=== PATIENT | female | born 1940 | race Caucasian/White ===

== ENCOUNTER 2017-04-11 08:16 | Emergency (ER) | payer MEDICARE, BC ==
--- OUTSIDE RECORDS SUMMARY | 2017-04-11 08:30 | XMS REPORT | Continuity of Care Document ---
:1940 Author Organization [employer] [place] [address] Care Team Providers Name Role Phone Alejandra Harmon Primary Care Provider [phone] Source Comments This disclosure is being made pursuant to the RegBinder program and maynot contain all information available regarding this patient.[employer] Active Allergies and Adverse Reactions Allergen Noted Date Severity Reactions Comments Penicillins 10/15/2014 Low Rash Current Medications Be aware that medications may not be up to date as of this document. Alwaysverify current medications with the patient. Prescription Sig. Disp. Refills Start Date End Date Status budesonide-formoterol Inhale 2 puffs into Active (SYMBICORT) 160-4.5 the lungs 2 (two) MCG/ACT inhaler times daily. fluticasone (FLONASE) 50 2 sprays by Nasal Active MCG/ACT nasal spray route daily. guaiFENesin (MUCINEX) 600 Take 1,200 mg by Active MG 12 hr tablet mouth as needed for Congestion. nicotine (NICODERM CQ) 21 Place 1 patch onto Active MG/24HR patch the skin daily. ALPRAZolam (XANAX) 0.25 Take 0.25 mg by Active MG tablet mouth every 8 (eight) hours as needed for Sleep. calcium carbonate (TUMS) Chew 1 tablet by Active 500 MG chewable tablet mouth as needed for Heartburn. guaifenesin (WAL-TUSSIN) Take 200 mg by Active 100 MG/5ML syrup mouth as needed for Cough. Active Problems Not on file Social History Tobacco Use Types Packs/Day Years Used Date Current Every Day Smoker Smokeless Tobacco: Never Used Alcohol Use Drinks/Week oz/Week Comments Yes 24 Cans of beer 14.4 Last Filed Vital Signs Vital Sign Reading Time Taken Blood Pressure 138/95 10/15/2014 11:19 AM STUDENT OUTREACH COORDINATOR Pulse 65 10/15/2014 11:19 AM STUDENT OUTREACH COORDINATOR Temperature 35.6 C (96 F) 10/15/2014 11:19 AM STUDENT OUTREACH COORDINATOR Respiratory Rate 16 10/15/2014 11:19 AM STUDENT OUTREACH COORDINATOR Height 1.651 m (5' 5") 10/15/2014 9:23 AM STUDENT OUTREACH COORDINATOR Weight 57.607 kg (127 lb) 10/15/2014 9:23 AM STUDENT OUTREACH COORDINATOR Body Mass Index 21.13 10/15/2014 9:23 AM STUDENT OUTREACH COORDINATOR Oxygen Saturation 100% 10/15/2014 11:19 AM STUDENT OUTREACH COORDINATOR Plan of Care Health Maintenance Due Date Last Done Comments Tetanus/Pertussis (1 - Tdap) 1959 Colonoscopy 1990 Well Adult Visit 1990 Zoster Vaccine 60+ 2000 Bone Density 2005 Pneumococcal Low/Medium Risk 65+ (1 of 2 - PCV13) 2005 Retired-INFLUENZA VACCINE 07/18/2016 Results from Last 3 Months Not on file
--- OUTSIDE RECORDS SUMMARY | 2017-04-11 08:30 | XMS REPORT | Continuity of Care Document ---
:1940 Author Organization [facility] ([facility]) Address [place] [address] Phone [phone] Care Team Providers Name Role Phone Provider, No-Primary Care Primary Care Provider Unavailable Source Comments This disclosure is being made pursuant to the Care Everywhere program, applicable federal and state laws, and may not contain all informaitonavailable regarding this patient.[facility] ([facility]) Active Allergies and Adverse Reactions Not on File Current Medications Not on file Active Problems Not on file Social History Tobacco Use Types Packs/Day Years Used Date Never Assessed Plan of Care Health Maintenance Due Date Last Done Comments Hepatitis B Vaccine (1 of 3 - Primary Series) 1940 Tdap Vaccine 1951 Lipid Disorder Screening 1958 Td Vaccine 1958 Mammogram 1980 Colonoscopy 1990 Zoster Vaccine 2000 Osteoporosis Screening (DXA Bone Density) 2005 Pneumococcal Vaccine (1 of 2 - PCV13) 2005 Influenza Vaccine: Seasonal (#1) 06/17/2016 Results from Last 3 Months Not on file
[2017-04-11 08:36] LABS: Hematocrit 34.5 % (37.0-47.0); Hemoglobin 11.7 gm/dL (12.5-16.0); Mean Cell Volume 82.5 fl (78-100); Mean Corpuscular Hgb Conc 33.9 g/dl (32-36); Mean Platelet Volume 8.7 fl (6.0-9.5); Neutrophil # 12.5 K/mm3 (1.3-6.0); Platelet Count 425 K/mm3 (150-450); Red Blood Count 4.18 M/mm3 (4.2-5.4); Red Cell Distribution Width 14.5 % (11.5-14.0); White Blood Count 14.1 K/mm3 (4.0-10.5)
[2017-04-11 08:42] VITALS: BP 174/97
[2017-04-11 08:43] LABS: Prothrombin Time (Patient) 13.4 Seconds (9.4-11.4)
[2017-04-11 08:45] LABS: INR 1.29 INR (0.90-1.10)
[2017-04-11 08:47] LABS: Urine Bilirubin Negative (NEGATIVE); Urine Blood 25 /ul (NEGATIVE); Urine Ketone Negative (NEGATIVE); Urine Nitrite Negative (NEGATIVE); Urine Protein 100 mg/dL (NEGATIVE); Urine Specific Gravity 1.025 SP.GR. (1.005-1.010); Urine Urobilinogen Normal (NORMAL)
[2017-04-11] MEDS ORDERED: PHYTONADIONE (VIT K1) 10 MG/ML AMPUL IV ONE (08:50)
[2017-04-11 08:51] LABS: Troponin I 0.028 ng/ml (0.00-0.10)
[2017-04-11] MEDS ORDERED: PHYTONADIONE (VIT K1) 10 MG/ML AMPUL ONE (08:51)
[2017-04-11 08:53] LABS: Albumin * 3.3 gm/dl (3.4-5.0); Anion Gap 13.4 mmol/L (6.8-13.8); BUN/Creatinine Ratio 24.3 (9.0-21.6); Bilirubin, Total 0.6 mg/dL (0.0-1.1); Ca. Corrected For Albumin 8.7 mg/dL (8.4-10.2); Calcium * 8.5 mg/dL (7.9-10.9); Carbon Dioxide 25.9 mmol/L (24-32.6); Potassium 3.3 mmol/L (3.4-4.6); Total Protein 7.1 gm/dL (6.2-8.2)
[2017-04-11 08:54] LABS: Urine Appearance Clear; Urine Bacteria None Seen; Urine Color Yellow; Urine RBC 0-5 /hpf (0-5); Urine WBC None Seen /hpf (0-5)
--- NOTE | 2017-04-11 09:17 | ERNOTE ---
Neuro HPI ER Record Date of Service: 04/11/17 Presenting Symptoms: weakness, facial droop Time Seen by Provider: 04/11/17 08:24 Source: family, EMR, EMS Exam Limitations: clinical condition Immunizations: IMMUNIZATION HX Immunizations Up to Date No History of Influenza Vaccine Yes Hx Pneumococcal Vaccination Yes Allergies/Adverse Reactions: Allergies Allergy/AdvReac Type Severity Reaction Status Date / Time amoxicillin [Amoxicillin] Allergy Intermediate Hives Verified 04/11/17 08:32 varenicline tartrate Allergy Verified 04/11/17 08:32 [From Chantix] Home Medications: HOME MEDICATIONS Alprazolam [Xanax Xr] 1 mg PO DAILY 03/30/14 [Last Taken Unknown] Levothyroxine Sodium [Synthroid] 100 mcg PO DAILY 03/30/14 [Last Taken Unknown] Omeprazole [Prilosec] 20 mg PO DAILY 03/30/14 [Last Taken Unknown] Aclidinium [place] [Tudorza Pressair] 400 mcg IH BID 07/14/16 [Last Taken Unknown] Albuterol Sulfate [Proair Hfa] 1 - 2 puff IH Q4H PRN 07/14/16 [Last Taken Unknown] Budesonide/Formoterol Fumarate [Symbicort 160-4.5 Mcg Inhaler] 2 puff IH BID [Last Taken Unknown] Triamterene/Hydrochlorothiazid [Maxzide 75 MG/50 MG] 1 tab PO DAILY 07/14/16 [ Last Taken Unknown] FLUoxetine HCL [Prozac] 20 mg PO DAILY 02/09/17 [Last Taken Unknown] Propafenone HCl [Propafenone HCl ER] 225 mg PO Q12H 02/09/17 [Last Taken Unknown ] Warfarin Sodium [Jantoven] 5 mg PO DAILY 02/09/17 [Last Taken Unknown] - History of Present Illness Narrative: Found this am with left facial weakness and left sided weakness. Last seen last night about 10 pm by family. BIB EMS. Moving right side, talking. She is on Warfarin. No history of stoke or trauma. Review of Systems - Narrative Narrative: Unable to complete. Denies any pain. - Patient's Past Medical History Patient History - Medical: Anxiety, Arthritis, GERD, Osteoarthritis, Osteoporosis, Other Patient History - Cardiac/Respiratory: Atrial Fibrillation, COPD Patient History - Cancer: Lung Patient History - Surgical Procedures: , EGD, Total Knee Replacement, T & A, Other Patient History - Other: None - Social History Living Situations: home Abuse History: No History of abuse Psych History: No pertinent hx Alcohol Use: none Drug Use: none - Immunizations Immunizations Up to Date: No Hx Pneumococcal Vaccination: Yes History of Influenza Vaccine: Yes Physical Exam - Physical Exam General Appearance: Present: alert Eye Exam: Normal inspection: bilateral, PERRL: bilateral, EOMI: bilateral Ears, Nose, Throat: Present: normal ENT inspection Neck: Present: normal inspection Respiratory: Present: no respiratory distress, no accessory muscle use, lungs clear Cardiovascular/Chest: Present: regular rate, rhythm, no murmur Gastrointestinal/Abdominal: Present: normal bowel sounds, soft Extremity Exam: Present: normal inspection Neurological Exam: Present: alert, facial droop - left side complete, motor weakness - flaccid left arm/leg. Absent: oriented - oriented to name but does not answer date place Skin Exam: Present: normal color, warm/dry Sullivan Coma Scale - Assess Eye Opening: To Voice Motor: Obeys Commands Verbal: Confused - Total Coma Scale Total: 13 Initial Stroke Assessment - Date/Time of assessment Stroke Scale Date: 04/11/17 Stroke Scale Time: 08:20 - NIH Stroke Scale Level of Consciousness: Alert - Score 15 LOC Questions (Year and Age): Answers neither correctly LOC Commands (open/close eyes/fist): Performs both correctly Lateral Gaze Paresis: None Facial Palsy: Complete facial paralysis Right Arm Motor (10 sec hold): No drift Left Arm Motor (10 sec hold): No movement Right Leg Motor (5 sec hold): No drift Left Leg Motor (5 sec hold): No movement Limb Ataxia (finger/nose heel/feliz): Absent Sensory Loss (pinprick arms/legs/face): Severe to total loss Language Aphasia (description/naming/reading): No aphasia; normal Dysarthria (speech clarity): Normal articulation Neglect Inattention (visual/tactile/auditory/spatial/person): Complete neglect Secondary Stroke Assessment - TPA Decision Is TPA administration indicated?: No - bleed ED Progress - Results and Orders Patient's Lab Results:: I have reviewed the patient's lab results. - that are available - Vital Signs Patient's Vital Signs:: I have reviewed the patient's vital signs. Vital Signs: Vital Signs 04/11/17 04/11/17 08:17 08:28 Temperature 36.7 C Pulse Rate 71 72 Respiratory 12 12 Rate Blood Pressure 179/67 172/79 O2 Sat by Pulse 98 97 Oximetry - EKG EKG: NSR, nonspecific ST T wave changes, other - LAFB - CT/Ultrasound CT/Ultrasound Narrative: CT head shows R intraparenchymal bleed. 3 mm midline shift. - Progress/Reassessment Chief Complaint: CerebroVascular Accident Progress:: Unchanged Plan - Plan Plan: Transfer to [facility]. Talked to Dr. Neftali Castillo. Vitamin K 10 mg IV. Accepts for transfer. Air Evac in ER to take. Departure Clinical Impression: Intracerebral hemorrhage, Hemiparesis - Departure Disposition: [facility] Condition: Critical Referrals: Alejandra Harmon MD [Primary Care Provider] -
== END 2017-04-11 08:55 | disposition short-term general hospital (02) ==
LOC: ER 08:16
DX: I61.9 Nontraumatic intracerebral hemorrhage, unspecified (principal); G81.94 Hemiplegia, unspecified affecting left nondominant side; Z85.118 Personal history of other malignant neoplasm of bronchus and lung

== ENCOUNTER 2017-06-16 19:46 | Emergency (ER) | payer MEDICARE, BC ==
--- OUTSIDE RECORDS SUMMARY | 2017-06-16 19:56 | XMS REPORT | Clinical Summary ---
:1940 Author Organization [employer] [place] [address] Care Team Providers Name Role Phone Unavailable Primary Care Provider Unavailable Source Comments This disclosure is being made pursuant to the Aggregate Knowledge program and maynot contain all information available regarding this patient.[employer] Allergies Active Allergy Reactions Severity Noted Date Comments Penicillins Rash Low 10/15/2014 Current Medications Be aware that medications may [...] Comments Yes 24 Cans of beer 14.4 Sex Assigned at Date Recorded Not on file Last Filed Vital Signs Vital Sign Reading Time Taken Blood Pressure 138/95 10/15/2014 11:19 AM CHIEF LIBRARIAN CIRCULATION DEPARTMENT Pulse 65 10/15/2014 11:19 AM CHIEF LIBRARIAN CIRCULATION DEPARTMENT Temperature 35.6 C (96 F) 10/15/2014 11:19 AM CHIEF LIBRARIAN CIRCULATION DEPARTMENT Respiratory Rate 16 10/15/2014 11:19 AM CHIEF LIBRARIAN CIRCULATION DEPARTMENT Oxygen Saturation 100% 10/15/2014 11:19 AM CHIEF LIBRARIAN CIRCULATION DEPARTMENT Inhaled Oxygen Concentration - - Weight 57.6 kg (127 lb) 10/15/2014 9:23 AM CHIEF LIBRARIAN CIRCULATION DEPARTMENT Height 165.1 cm (5' 5") 10/15/2014 9:23 AM CHIEF LIBRARIAN CIRCULATION DEPARTMENT Body Mass Index 21.13 10/15/2014 9:23 AM CHIEF LIBRARIAN CIRCULATION DEPARTMENT Plan of Treatment Health Maintenance Due Date Last Done Comments Tetanus/Pertussis (1 - Tdap) 1959 Colonoscopy 1990 Well Adult Visit 1990 Zoster Vaccine 60+ 2000 Bone Density 2005 Pneumococcal Low/Medium Risk 65+ (1 of 2 - PCV13) 2005 Retired-INFLUENZA VACCINE 07/18/2016 Results Not on filefrom Last 3 Months Insurance Payer Benefit Plan / Group Subscriber ID Type Phone Address [employer] [facility] [id number] [facility] [id number] MEDICARE SUPPLEMENT [address] [place] [address] MEDICARE MEDICARE A AND B [id number] [address] [place] [address] [phone] [address]
--- NOTE | 2017-06-16 20:32 | ERNOTE ---
Neuro HPI ER Record Date of Service: 06/16/17 Time Seen by Provider: 06/16/17 19:50 Source: patient Exam Limitations: no limitations Immunizations: IMMUNIZATION HX Immunizations Up to Date Yes History of Influenza Vaccine Yes Hx Pneumococcal Vaccination Yes Allergies/Adverse Reactions: Allergies Allergy/AdvReac Type Severity Reaction Status Date / Time amoxicillin [Amoxicillin] Allergy Intermediate Hives Verified 06/16/17 19:55 varenicline tartrate Allergy Verified 06/16/17 19:55 [From Chantix] Home Medications: HOME MEDICATIONS Alprazolam [Xanax Xr] 1 mg PO DAILY 03/30/14 [Last Taken Unknown] Levothyroxine Sodium [Synthroid] 137 mcg PO DAILY 03/30/14 [Last Taken Unknown] Omeprazole [Prilosec] 20 mg PO DAILY 03/30/14 [Last Taken Unknown] Aclidinium [place] [Tudorza Pressair] 400 mcg IH BID 07/14/16 [Last Taken Unknown] Albuterol Sulfate [Proair Hfa] 1 - 2 puff IH Q4H PRN 07/14/16 [Last Taken Unknown] Budesonide/Formoterol Fumarate [Symbicort 160-4.5 Mcg Inhaler] 2 puff IH BID [Last Taken Unknown] FLUoxetine HCL [Prozac] 20 mg PO DAILY 02/09/17 [Last Taken Unknown] Propafenone HCl [Propafenone HCl ER] 225 mg PO BID 02/09/17 [Last Taken Unknown] Fluticasone Propionate [Flovent Diskus] 50 mcg IH DAILY 06/16/17 [Last Taken Unknown] Sulfamethoxazole/Trimethoprim [Bactrim Ds] 1 tab PO BID #28 tab 06/16/17 [Last Taken Unknown] Triamterene/Hydrochlorothiazid [Dyazide 37.5/25] 1 cap PO DAILY 06/16/17 [Last Taken Unknown] - History of Present Illness Narrative: Pt. comes in with c/o not remembering her daughter today. Pt. states that she is here with her sister who i actually her daughter and argues with her when her daughter corrects her. Pt. 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 Pt. also has a hx of COPD but denies any increase in symptoms from this. Daughter contacted pt. neurosurgeon and was recommended to bring pt to ER. Review of Systems - Review of Systems Constitutional: Present: no symptoms reported. Absent: fever, chills, weakness , fatigue, malaise EYE: Present: no symptoms reported ENT: Present: no symptoms reported Respiratory: Present: no symptoms reported. Absent: shortness of breath, cough , wheezing Cardiology: Present: no symptoms reported. Absent: chest pain, palpitations, edema Gastrointestinal/Abdominal: Present: no symptoms reported. Absent: nausea, vomiting, diarrhea Genitourinary: Present: no symptoms reported Musculoskeletal: Present: no symptoms reported Skin: Present: no symptoms reported Neurological: Present: other - misnomia. Absent: headache, dizziness/light- headedness, weakness, numbness All Other Systems: All systems neg except as marked - Patient's Past Medical History Patient History - Medical: Anxiety, Arthritis, GERD, Osteoarthritis, Osteoporosis Patient History - Cardiac/Respiratory: Atrial Fibrillation, COPD, CVA/Stroke Patient History - Cancer: Lung Patient History - Surgical Procedures: , EGD, Total Knee Replacement, T & A, Other Patient History - Other: None - Social History Living Situations: retirement Abuse History: No History of abuse Psych History: No pertinent hx Smoking Status: Former smoker Have you smoked in the past 12 months: No Do you dip or chew tobacco: No Alcohol Use: none Drug Use: none - Immunizations Immunizations Up to Date: Yes Hx Pneumococcal Vaccination: Yes History of Influenza Vaccine: Yes Physical Exam - Physical Exam General Appearance: Present: wd/wn, alert, no apparent distress Head Exam: Present: normal inspection, no evidence of injury, other - scarring from procedure Eye Exam: Normal inspection: bilateral, PERRL: bilateral, EOMI: bilateral Ears, Nose, Throat: Present: normal ENT inspection, normal pharynx Neck: Present: normal inspection, nontender. Absent: lymphadenopathy (R), lymphadenopathy (L) Respiratory: Present: no respiratory distress, normal breath sounds, no accessory muscle use, chest nontender, lungs clear Cardiovascular/Chest: Present: regular rate, rhythm, no murmur, normal peripheral pulses Gastrointestinal/Abdominal: Present: normal bowel sounds, nontender, nondistended, soft, no organomegaly Back Exam: Present: normal inspection Extremity Exam: Present: normal inspection, non-tender, normal range of motion, no edema Neurological Exam: Present: alert, oriented, normal mood/affect, no motor/ sensory deficits, ell tutor II-XII nml as tested, other - Ptient is calling her jauner by her sisters name and states that it is her sister Skin Exam: Present: normal color, warm/dry Zwingle Coma Scale - Assess Eye Opening: Spontaneous Motor: Obeys Commands Verbal: Oriented - Total Coma Scale Total: 15 Initial Stroke Assessment - Date/Time of assessment Stroke Scale Date: 06/16/17 Stroke Scale Time: 20:30 - NIH Stroke Scale Level of Consciousness: Alert LOC Questions (Year and Age): Answers both correctly LOC Commands (open/close eyes/fist): Performs both correctly Lateral Gaze Paresis: None Visual Field Loss: No visual loss Facial Palsy: Normal movement Right Arm Motor (10 sec hold): No drift Left Arm Motor (10 sec hold): No drift Right Leg Motor (5 sec hold): No drift Left Leg Motor (5 sec hold): No drift Limb Ataxia (finger/nose heel/feliz): Absent Sensory Loss (pinprick arms/legs/face): No sensory loss Language Aphasia (description/naming/reading): No aphasia; normal Dysarthria (speech clarity): Normal articulation Neglect Inattention (visual/tactile/auditory/spatial/person): No neglect Initial Stroke Scale Score:: 0 Stroke Inclusion/Exclusion Cri - Exclusion Questions: Major symptoms rapidly improving: No Seizure at onset of stroke: No SBP>185; DBP>110 at time treatment is to begin: No Patient received Heparin or Coumadin within 48 hours: No Patient has elevated PTT or Protime/INR: No Stroke, head injury, major surgery, serious trauma in 3 mon.: Yes Previous intracranial hemmorhage: Yes Recent NM: No Known AV malformation or aneurysm: No Blood glucose <50mg/dl or >400mg/dl: No NIHSS Score <4 or >22 performed by physician: No ED Progress - Date and Time Seen: Date and Time: 06/16/17 20:[address] Cain and as the pt. does not have any overt signs of rebleeding and she does have an overt UTI feel that this is the reason for her AMS. - Results and Orders Patient's Lab Results:: I have reviewed the patient's lab results. - Vital Signs Patient's Vital Signs:: I have reviewed the patient's vital signs. Vital Signs: Vital Signs 06/16/17 19:50 Temperature 36.4 C L Pulse Rate 104 H Respiratory 20 Rate Blood Pressure 154/117 - EKG EKG: atrial fibrillation, other - no acute st changes EKG read: Reviewed by me EKG Comments: interp by Dr Cain - CT/Ultrasound CT/Ultrasound Narrative: CT head results discussed with Dr Albarado, no acute changes, residual blood and developing frontal infarct secondary to recent acute injury. 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 Discuss Thyroid level on follow up and increase fluid intake. Referrals: Alejandra Harmon MD [Primary Care Provider] - Prescriptions: Sulfamethoxazole/Trimethoprim [Bactrim Ds] 1 tab PO BID #28 tab
[2017-06-16 20:39] LABS: Hematocrit 33.4 % (37.0-47.0); Hemoglobin 11.1 gm/dL (12.5-16.0); Mean Cell Volume 88.6 fl (78-100); Mean Corpuscular Hemoglobin 29.4 pg (27-31); Mean Corpuscular Hgb Conc 33.2 g/dl (32-36); Mean Platelet Volume 8.7 fl (6.0-9.5); Neutrophil # 5.3 K/mm3 (1.3-6.0); Neutrophil % 56.1 % (42-75.0); Platelet Count 507 K/mm3 (150-450); Red Blood Count 3.77 M/mm3 (4.2-5.4); Red Cell Distribution Width 16.2 % (11.5-14.0); White Blood Count 9.4 K/mm3 (4.0-10.5)
[2017-06-16 20:41] LABS: Urine Bilirubin Negative (NEGATIVE); Urine Blood Negative /ul (NEGATIVE); Urine Ketone Negative (NEGATIVE); Urine Protein 100 mg/dL (NEGATIVE); Urine Specific Gravity 1.015 SP.GR. (1.005-1.010); Urine Urobilinogen Normal (NORMAL)
[2017-06-16 20:48] LABS: Urine Appearance Slightly Cloudy; Urine Bacteria 4+; Urine Color Yellow; Urine Nitrite Positive (NEGATIVE); Urine RBC None Seen /hpf (0-5); Urine WBC 0-5 /hpf (0-5)
[2017-06-16] MEDS ORDERED: SULFAMETHOXAZOLE/TRIMETHOPRIM 1 TAB TABLET PO ONE (20:52)
[2017-06-16 20:53] LABS: Cocaine Ur Negative (NEGATIVE); Urine Barbiturate Negative (NEGATIVE); Urine Opiates Negative (NEGATIVE); Urine PCP Negative (NEGATIVE); Urine THC Negative (NEGATIVE)
[2017-06-16 20:55] LABS: Urine Benzodiazepines Positive (NEGATIVE)
[2017-06-16 20:59] LABS: Albumin * 3.5 gm/dl (3.4-5.0); Anion Gap 13.9 mmol/L (6.8-13.8); BUN/Creatinine Ratio 22.1 (9.0-21.6); Bilirubin, Total 0.4 mg/dL (0.0-1.1); Ca. Corrected For Albumin 8.7 mg/dL (8.4-10.2); Calcium * 8.6 mg/dL (7.9-10.9); Carbon Dioxide 25.9 mmol/L (24-32.6); Potassium 4.8 mmol/L (3.4-4.6); TSH * 20.68 uIU/mL (0.358-3.74); Total Protein 7.2 gm/dL (6.2-8.2)
[2017-06-16] MEDS ORDERED: SULFAMETHOXAZOLE/TRIMETHOPRIM 1 TAB TABLET ONE (20:59)
[2017-06-16] MEDS ORDERED: NORMAL SALINE 1,000 ML IV ONE (21:22)
[2017-06-16 22:41] VITALS: BP 129/67
== END 2017-06-16 22:38 | disposition home or self-care (01) ==
LOC: ER 19:46
DX: N30.00 Acute cystitis without hematuria (principal); Z86.73 Personal history of transient ischemic attack (TIA), and cerebral infarction without residual deficits; F41.9 Anxiety disorder, unspecified; M19.90 Unspecified osteoarthritis, unspecified site; K21.9 Gastro-esophageal reflux disease without esophagitis; I48.91 Unspecified atrial fibrillation; Z79.01 Long term (current) use of anticoagulants; J44.9 Chronic obstructive pulmonary disease, unspecified; Z85.118 Personal history of other malignant neoplasm of bronchus and lung

== ENCOUNTER 2017-06-17 07:14 | Emergency (ER) | payer MEDICARE, BC ==
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
--- OUTSIDE RECORDS SUMMARY | 2017-06-17 07:36 | XMS REPORT | Clinical Summary ---
:1940 Author Organization [employer] [place] [address] Care Team Providers Name Role Phone Unavailable Primary Care Provider Unavailable Source Comments This disclosure is being made pursuant to the [employer] program and maynot contain all information available regarding this patient.[employer] Allergies Active Allergy Reactions Severity Noted Date [...] Taken Blood Pressure 138/95 10/15/2014 11:19 AM [employer] Pulse 65 10/15/2014 11:19 AM [employer] Temperature 35.6 C (96 F) 10/15/2014 11:19 AM [employer] Respiratory Rate 16 10/15/2014 11:19 AM [employer] Oxygen Saturation 100% 10/15/2014 11:19 AM [employer] Inhaled Oxygen Concentration - - Weight 57.6 kg (127 lb) 10/15/2014 9:23 AM [employer] Height 165.1 cm (5' 5") 10/15/2014 9:23 AM [employer] Body Mass Index 21.13 10/15/2014 9:23 AM [employer] Plan of Treatment Health Maintenance Due Date Last Done Comments Tetanus/Pertussis (1 - Tdap) 1959 Colonoscopy 1990 Well Adult Visit 1990 Zoster Vaccine 60+ 2000 Bone Density 2005 Pneumococcal Low/Medium Risk 65+ (1 of 2 - PCV13) 2005 Retired-INFLUENZA VACCINE 07/18/2016 Results Not on filefrom Last 3 Months Insurance Payer Benefit Plan / Group Subscriber ID Type Phone Address [facility]UE [employer]OSS BLUE [facility] [id number] [facility] [id number] MEDICARE SUPPLEMENT [address] [place] [address] MEDICARE MEDICARE A AND B [id number] [address] [place] [address] [phone] [address]
[2017-06-17 10:31] VITALS: BP 109/55
== END 2017-06-17 10:10 | disposition home or self-care (01) ==
LOC: ER 07:14
DX: S00.93XA Contusion of unspecified part of head, initial encounter (principal); S06.0X0A Concussion without loss of consciousness, initial encounter; N30.00 Acute cystitis without hematuria; Z87.891 Personal history of nicotine dependence; W18.30XA Fall on same level, unspecified, initial encounter; W22.8XXA Striking against or struck by other objects, initial encounter; Y93.01 Activity, walking, marching and hiking; Y92.008 Other place in unspecified non-institutional (private) residence as the place of occurrence of the external cause

== ENCOUNTER 2017-06-18 11:00 | Emergency (ER) | payer MEDICARE, BC ==
[2017-06-18 11:17] VITALS: BP 110/68
--- OUTSIDE RECORDS SUMMARY | 2017-06-18 11:33 | XMS REPORT | Clinical Summary ---
:1940 Author Organization [employer] [place] [address] Care Team Providers Name Role Phone Unavailable Primary Care Provider Unavailable Source Comments This disclosure is being made pursuant to the [employer] program and maynot contain all information available regarding this patient.[employer] Allergies Active Allergy Reactions Severity Noted Date [...] Taken Blood Pressure 138/95 10/15/2014 11:19 AM TRAFFIC AGENT Pulse 65 10/15/2014 11:19 AM TRAFFIC AGENT Temperature 35.6 C (96 F) 10/15/2014 11:19 AM TRAFFIC AGENT Respiratory Rate 16 10/15/2014 11:19 AM TRAFFIC AGENT Oxygen Saturation 100% 10/15/2014 11:19 AM TRAFFIC AGENT Inhaled Oxygen Concentration - - Weight 57.6 kg (127 lb) 10/15/2014 9:23 AM TRAFFIC AGENT Height 165.1 cm (5' 5") 10/15/2014 9:23 AM TRAFFIC AGENT Body Mass Index 21.13 10/15/2014 9:23 AM TRAFFIC AGENT Plan of Treatment Health Maintenance Due Date Last Done Comments Tetanus/Pertussis (1 - Tdap) 1959 Colonoscopy 1990 Well Adult Visit 1990 Zoster Vaccine 60+ 2000 Bone Density 2005 Pneumococcal Low/Medium Risk 65+ (1 of 2 - PCV13) 2005 Retired-INFLUENZA VACCINE 07/18/2016 Results Not on filefrom Last 3 Months Insurance Payer Benefit Plan / Group Subscriber ID Type Phone Address [facility]UE [facility]OSS [facility]UE [facility] [id number] [facility] [id number] MEDICARE SUPPLEMENT [address] [place] [address] MEDICARE MEDICARE A AND B [id number] [address] [place] [address] [phone] [address]
== END 2017-06-18 11:24 | disposition home or self-care (01) ==
LOC: ER 11:00
DX: Z48.00 Encounter for change or removal of nonsurgical wound dressing (principal)

== ENCOUNTER 2017-06-21 17:44 | Inpatient (IN) | payer MEDICARE, BC ==
--- OUTSIDE RECORDS SUMMARY | 2017-06-21 17:54 | XMS REPORT | Clinical Summary ---
:1940 Author Organization [employer] [place] [address] Care Team Providers Name Role Phone Unavailable Primary Care Provider Unavailable Source Comments This disclosure is being made pursuant to the [employer] program and maynot contain all information available regarding this patient.[employer] Allergies Active Allergy Reactions Severity Noted Date [...] Taken Blood Pressure 138/95 10/15/2014 11:19 AM [employer] Pulse 65 10/15/2014 11:19 AM [employer] Temperature 35.6 C (96 F) 10/15/2014 11:19 AM [employer] Respiratory Rate 16 10/15/2014 11:19 AM [employer] P[employer] Oxygen Saturation 100% 10/15/2014 11:19 AM [employer] Inhaled Oxygen Concentration - - Weight 57.6 kg (127 lb) 10/15/2014 9:23 AM SE[employer]ER P[employer] CLE[employer] Height 165.1 cm (5' 5") 10/15/2014 9:23 AM [employer] Body Mass Index 21.13 10/15/2014 9:23 AM [employer] Plan of Treatment Health Maintenance Due Date Last Done Comments Tetanus/Pertussis (1 - Tdap) 1959 Colonoscopy 1990 Well Adult Visit 1990 Zoster Vaccine 60+ 2000 Bone Density 2005 Pneumococcal Low/Medium Risk 65+ (1 of 2 - PCV13) 2005 Retired-INFLUENZA VACCINE 07/18/2016 Results Not on filefrom Last 3 Months Insurance Payer Benefit Plan / Group Subscriber ID Type Phone Address [facility] [employer]OSS BLUE [facility] [id number] [facility] [id number] MEDICARE SUPPLEMENT [address] [place] [address] MEDICARE MEDICARE A AND B [id number] [address] [place] [address] [phone] [address]
[2017-06-21] MEDS ORDERED: NORMAL SALINE 1,000 ML IV ONE ×2 (18:11→19:45)
--- NOTE | 2017-06-21 18:15 | ERNOTE ---
Abdominal HPI - General Chief Complaint: Abdominal Pain Time Seen by Provider: 06/21/17 17:48 Source: patient Exam Limitations: no limitations - Immun/Allergies/Home Medications Immunizatons: IMMUNIZATION HX Immunizations Up to Date Yes History of Influenza Vaccine Yes Hx Pneumococcal Vaccination Yes Allergies/Adverse Reactions: Allergies amoxicillin [Amoxicillin] Allergy (Intermediate, Verified 06/21/17 18:02) Hives varenicline tartrate [From Chantix] Allergy (Verified 06/21/17 18:02) Home Medications: HOME MEDICATIONS Alprazolam [Xanax Xr] 1 mg PO DAILY 03/30/14 [Last Taken 06/21/17 07:30] Omeprazole [Prilosec] 20 mg PO DAILY 03/30/14 [Last Taken 06/21/17 07:30] Aclidinium [place] [Tudorza Pressair] 400 mcg IH BID 07/14/16 [Last Taken Unknown] Albuterol Sulfate [Proair Hfa] 1 - 2 puff IH Q4H PRN 07/14/16 [Last Taken 07:30] Budesonide/Formoterol Fumarate [Symbicort 160-4.5 Mcg Inhaler] 2 puff IH BID [Last Taken 06/21/17 07:30] FLUoxetine HCL [Prozac] 20 mg PO DAILY 02/09/17 [Last Taken 06/21/17 07:30] Propafenone HCl [Propafenone HCl ER] 225 mg PO BID 02/09/17 [Last Taken 07:30] Fluticasone Propionate [Flovent Diskus] 50 mcg IH DAILY 06/16/17 [Last Taken 03/03 21:00] Triamterene/Hydrochlorothiazid [Dyazide 37.5/25] 1 cap PO DAILY 06/16/17 [Last Taken 06/21/17 07:30] Levothyroxine Sodium [Synthroid] 150 mcg PO DAILY #30 tab 06/17/17 [Last Taken 06/21/17 07:30] Ciprofloxacin HCl [Cipro] 250 mg PO BID 06/21/17 [Last Taken 06/21/17 07:30] - History of Present Illness Narrative: Here for feeling fatigued and tired and has diarrhea since four days ago. five days ago was diagnosed with UTI and given Bactrim then switched to Cipro. Feels diffuse abdominal pain - Patient's Past Medical History Patient History - Medical: Anxiety, Arthritis, GERD, Osteoarthritis, Osteoporosis Patient History - Cardiac/Respiratory: Atrial Fibrillation, COPD, CVA/Stroke Patient History - Cancer: Lung Patient History - Surgical Procedures: , EGD, Total Knee Replacement, T & A, Other Patient History - Other: None - Family History Mother Family History - Medical: Father Family History - Medical: Family History - Cardiac/Respiratory: Myocardial Infarction - Social History Living Situations: alone Abuse History: No History of abuse Psych History: No pertinent hx Smoking Status: Former smoker Have you smoked in the past 12 months: No Do you dip or chew tobacco: Yes Alcohol Use: none Drug Use: none - Immunizations Immunizations Up to Date: Yes Hx Pneumococcal Vaccination: Yes History of Influenza Vaccine: Yes Physical Exam - Physical Exam General Appearance: Present: other Head Exam: Present: normal inspection, no evidence of injury Ears, Nose, Throat: Present: normal ENT inspection, normal pharynx - dry mucous membranes are noted Neck: Present: normal inspection, nontender Respiratory: Present: no respiratory distress, normal breath sounds, no accessory muscle use, lungs clear Cardiovascular/Chest: Present: no murmur, irregularly irregular Gastrointestinal/Abdominal: Present: normal bowel sounds, soft Back Exam: Present: normal inspection Extremity Exam: Present: normal inspection, normal range of motion - skin tear noted on the left elbow this is an old injury op site is noted in place Neurological Exam: Present: alert, oriented, normal mood/affect - patient appears tired ED Progress - Results and Orders Patient's Lab Results:: I have reviewed the patient's lab results. - Vital Signs Patient's Vital Signs:: I have reviewed the patient's vital signs. Vital Signs: Vital Signs 06/21/17 17:56 Temperature 36.3 C L Pulse Rate 138 H Respiratory 16 Rate Blood Pressure 129/56 O2 Sat by Pulse 97 Oximetry - Progress/Reassessment Chief Complaint: Abdominal Pain Departure - Departure Clinical Impression: Atrial fibrillation with RVR Abdominal pain Qualifiers: Abdominal location: right upper quadrant Qualified Code(s): R10.11 - Right upper quadrant pain Disposition: [facility] Condition: Fair - Critical Care Critical Care: ONE HOUR CRITICAL CARE TIME
[2017-06-21 18:47] LABS: Hematocrit 34.6 % (37.0-47.0); Hemoglobin 11.6 gm/dL (12.5-16.0); Mean Cell Volume 86.1 fl (78-100); Mean Corpuscular Hemoglobin 28.9 pg (27-31); Mean Corpuscular Hgb Conc 33.5 g/dl (32-36); Mean Platelet Volume 8.7 fl (6.0-9.5); Neutrophil # 5.6 K/mm3 (1.3-6.0); Neutrophil % 61.7 % (42-75.0); Platelet Count 538 K/mm3 (150-450); Red Blood Count 4.02 M/mm3 (4.2-5.4); Red Cell Distribution Width 15.8 % (11.5-14.0)
[2017-06-21 18:54] LABS: Total Cells Counted 100
[2017-06-21 18:58] LABS: Urine Appearance Clear; Urine Bilirubin Negative (NEGATIVE); Urine Blood Negative /ul (NEGATIVE); Urine Color Yellow; Urine Ketone Negative (NEGATIVE); Urine Nitrite Negative (NEGATIVE); Urine Protein 100 mg/dL (NEGATIVE); Urine Specific Gravity 1.025 SP.GR. (1.005-1.010); Urine Urobilinogen Normal (NORMAL); Urine WBC 0-5 /hpf (0-5)
[2017-06-21 18:59] LABS: Urine Bacteria None Seen; Urine RBC None Seen /hpf (0-5)
[2017-06-21 19:02] LABS: Albumin * 2.6 gm/dl (3.4-5.0); Anion Gap 17.9 mmol/L (6.8-13.8); BUN/Creatinine Ratio 14.9 (9.0-21.6); Bilirubin, Total 0.3 mg/dL (0.0-1.1); Ca. Corrected For Albumin 8.7 mg/dL (8.4-10.2); Calcium * 7.9 mg/dL (7.9-10.9); Carbon Dioxide 17.5 mmol/L (24-32.6); Potassium 3.4 mmol/L (3.4-4.6); Total Protein 5.9 gm/dL (6.2-8.2)
[2017-06-21] MEDS ORDERED: ONDANSETRON HCL/PF 2 MG/ML VIAL IV ONE (19:11)
[2017-06-21] MEDS ORDERED: HYDROmorphone HCL 1 MG/ML DISP.SYRIN IV ONE (19:11)
[2017-06-21] MEDS ORDERED: ONDANSETRON HCL/PF 2 MG/ML VIAL ONE (19:17)
[2017-06-21] MEDS ORDERED: HYDROmorphone HCL 1 MG/ML DISP.SYRIN ONE (19:17)
[2017-06-21 19:35] LABS: Band 16 % (0-2.0); Lymphocyte 20 % (20-51); Monocyte 14 % (0-9); Neutrophil 50 % (42-75); Neutrophil # 4.5 K/mm3 (1.3-6.0); Platelet Estimate Increased (NORMAL)
[2017-06-21 19:36] LABS: RBC Morphology Normal (NORMAL)
[2017-06-21] MEDS ORDERED: METOPROLOL TARTRATE 1 MG/ML AMPUL IV ONE ×2 (19:45→19:48)
--- OUTSIDE RECORDS SUMMARY | 2017-06-21 21:56 | XMS REPORT | Clinical Summary ---
:1940 Author Organization [employer] [place] [address] Care Team Providers Name Role Phone Unavailable Primary Care Provider Unavailable Source Comments This disclosure is being made pursuant to the [employer] program and maynot contain all information available regarding this patient.[employer] Allergies Active Allergy Reactions Severity Noted Date [...] Taken Blood Pressure 138/95 10/15/2014 11:19 AM TEXTILE [employer]ACHINE [employer]CH[employer] Pulse 65 10/15/2014 11:19 AM TEXTILE MACHINE MECH[employer]IC Temperature 35.6 C (96 F) 10/15/2014 11:19 AM TEXTILE MACHINE MECH[employer]IC Respiratory Rate 16 10/15/2014 11:19 AM TEXTILE MACHINE MECH[employer]IC Oxygen Saturation 100% 10/15/2014 11:19 AM TEXTILE MACHINE MECH[employer]IC Inhaled Oxygen Concentration - - Weight 57.6 kg (127 lb) 10/15/2014 9:23 AM TEXTILE MACHINE MECH[employer]IC Height 165.1 cm (5' 5") 10/15/2014 9:23 AM TEXTILE MACHINE [employer]CH[employer] Body Mass Index 21.13 10/15/2014 9:23 AM TEXTILE MACHINE MECHANIC Plan of Treatment Health Maintenance Due Date Last Done Comments Tetanus/Pertussis (1 - Tdap) 1959 Colonoscopy 1990 Well Adult Visit 1990 Zoster Vaccine 60+ 2000 Bone Density 2005 Pneumococcal Low/Medium Risk 65+ (1 of 2 - PCV13) 2005 Retired-INFLUENZA VACCINE 07/18/2016 Results Not on filefrom Last 3 Months Insurance Payer Benefit Plan / Group Subscriber ID Type Phone Address [facility]UE [facility] [id number] [facility] [id number] MEDICARE SUPPLEMENT [address] [place] [address] MEDICARE MEDICARE A AND B [id number] [address] [place] [address] [phone] [address]
[2017-06-21] MEDS ORDERED: ALBUTEROL SULFATE 200 PUFF INHALER IH PRN (22:44)
[2017-06-21] MEDS ORDERED: PROPAFENONE HCL 225 MG PO SCH (22:45)
[2017-06-21] MEDS ORDERED: ONDANSETRON HCL/PF 2 MG/ML VIAL IV PRN (22:47)
--- NOTE | 2017-06-21 22:48 | HP ---
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 patient states she was started on bactrim DS on friday for UTI but that the medication made her sick to her stomach. Thus, she was recently changed to cipro a few days ago. patient states that she has had diarrhea for 4 days. ER eval revealed normal wbc and neutrophils. CMP remarkable for BUN/creatinine at 29/1.95. baseline creatinine is around 0.9. UA positive for 100 protein. c diff negative. HR running 115-150. patient was given 2 liters NS in the ER with 5 mg iv lopressor. patient to be admitted for afib with rvr, dehydration and abdominal pain. - Patient's Past Medical History Patient History - Medical: Anxiety, Arthritis, GERD, Osteoarthritis, Osteoporosis Patient History - Cardiac/Respiratory: Atrial Fibrillation, COPD, CVA/Stroke Patient History - Cancer: Lung Patient History - Surgical Procedures: , EGD, Total Knee Replacement, T & A, Other Patient History - Other: None LMP (females 10-50): Menopausal - Family History Mother Family History - Medical: Father Family History - Medical: Family History - Cardiac/Respiratory: Myocardial Infarction - Social History Living Situations: alone Abuse History: No History of abuse Psych History: No pertinent hx Smoking Status: Former smoker Have you smoked in the past 12 months: No Do you dip or chew tobacco: Yes Alcohol Use: none Drug Use: none - Immunizations Immunizations Up to Date: Yes Hx Pneumococcal Vaccination: Yes History of Influenza Vaccine: Yes Review Of Systems (GEN) - Review of Systems Generalized/Overall Review: Present: Weakness, Fatigue. Absent: Chills, Fever EENTM: Present: No Symptoms Reported Respiratory: Present: No Symptoms Reported Cardiac: Present: Palpitations. Absent: Chest Pain, Edema, Syncope Abdominal: Present: Abdominal Pain, Diarrhea. Absent: Nausea, Vomiting, Hematemesis, Melena, Bright blood from rectum Genitourinary: Present: No Symptoms Reported Musculoskeletal: Present: No Symptoms Reported Neurological: Present: No Symptoms Reported Skin: Present: No Symptoms Reported Endocrine: Present: No Symptoms Reported Misc: All systems neg except as marked Allergies/Adverse Reactions: Allergies Allergy/AdvReac Type Severity Reaction Status Date / Time amoxicillin [Amoxicillin] Allergy Intermediate Hives Verified 06/21/17 18:02 varenicline tartrate Allergy Verified 06/21/17 18:02 [From Chantix] Home Medications: HOME MEDICATIONS Alprazolam [Xanax Xr] 1 mg PO DAILY 03/30/14 [Last Taken 06/21/17 07:30] Omeprazole [Prilosec] 20 mg PO DAILY 03/30/14 [Last Taken 06/21/17 07:30] Aclidinium [place] [Tudorza Pressair] 400 mcg IH BID 07/14/16 [Last Taken Unknown] Albuterol Sulfate [Proair Hfa] 1 - 2 puff IH Q4H PRN 07/14/16 [Last Taken 07:30] Budesonide/Formoterol Fumarate [Symbicort 160-4.5 Mcg Inhaler] 2 puff IH BID [Last Taken 06/21/17 07:30] FLUoxetine HCL [Prozac] 20 mg PO DAILY 02/09/17 [Last Taken 06/21/17 07:30] Propafenone HCl [Propafenone HCl ER] 225 mg PO BID 02/09/17 [Last Taken 07:30] Fluticasone Propionate [Flovent Diskus] 50 mcg IH DAILY 06/16/17 [Last Taken 03/03 21:00] Triamterene/Hydrochlorothiazid [Dyazide 37.5/25] 1 cap PO DAILY 06/16/17 [Last Taken 06/21/17 07:30] Levothyroxine Sodium [Synthroid] 150 mcg PO DAILY #30 tab 06/17/17 [Last Taken 06/21/17 07:30] Ciprofloxacin HCl [Cipro] 250 mg PO BID 06/21/17 [Last Taken 06/21/17 07:30] Exam - Exam Vital Signs: Vital Signs - Last Taken Temp 97.3 C H 06/21/17 21:19 Pulse 115 H 06/21/17 22:12 Resp 18 06/21/17 22:12 BP 103/56 08/05/17 22:12 Pulse Ox 95 06/21/17 22:12 Constitutional: Present: Alert, Cooperative, No distress ENT Exam: Present: hearing grossly normal Eye Exam: bilateral eye: normal inspection Neck: Present: full range of motion, supple Back Exam: Present: no vertebral tenderness Breasts: Present: Exam deferred Respiratory: Present: chest non-tender, lungs clear, normal breath sounds Cardiovascular/Chest: Present: normal peripheral pulses, tachycardia, irregularly irregular Peripheral Pulses: carotid (R): 2+, carotid (L): 2+, dorsalis-pedis (R): 2+, dorsalis-pedis (L): 2+, radial (R): 2+, radial (L): 2+ Abdomen: Present: soft, nondistended, tender - RUQ. Absent: guarding, rigidity /Rectal: Present: Exam deferred Extremity: Present: normal range of motion, non-tender, normal inspection Skin Exam: Present: normal color, warm/dry, no cyanosis Diagnostic Studies: Abnormal Lab Results 06/21/17 Range/Units Unknown C-Reactive Prot, Quant 2.3 H (0.0-0.9) mg/dL Laboratory Results WBC 9.0 K/mm3 (4.0-10.5) 06/21/17 18:38 RBC 4.02 M/mm3 (4.2-5.4) L 06/21/17 18:38 Hgb 11.6 gm/dL (12.5-16.0) L 06/21/17 18:38 Hct 34.6 % (37.0-47.0) L 06/21/17 18:38 MCV 86.1 fl (78-100) 06/21/17 18:38 MCH 28.9 pg (27-31) 06/21/17 18:38 MCHC 33.5 g/dl (32-36) 06/21/17 18:38 RDW 15.8 % (11.5-14.0) H 06/21/17 18:38 Plt Count 538 K/mm3 (150-450) H 06/21/17 18:38 MPV 8.7 fl (6.0-9.5) 06/21/17 18:38 Immature Gran % (Auto) 0.40 % (0.001-0.429) 06/21/17 18:38 Immature Gran # (Auto) 0.04 K/mm3 (0.000-0.0310) H 06/21/17 18:38 Neutrophils % 61.7 % (42-75.0) 06/21/17 18:38 Neutrophils % (Manual) 50 % (42-75) 06/21/17 18:38 Band Neuts % (Manual) 16 % (0-2.0) H 06/21/17 18:38 Lymphocytes % 15.7 % (20-51) L 06/21/17 18:38 Lymphocytes % (Manual) 20 % (20-51) 06/21/17 18:38 Monocytes % 20.8 % (0.0-9) H 06/21/17 18:38 Monocytes % (Manual) 14 % (0-9) H 06/21/17 18:38 Eosinophils % 0.8 % (0.0-3.0) 06/21/17 18:38 Basophils % 0.6 % (0.0-1.0) 06/21/17 18:38 Nucleated RBC % 0.0 k/mm3 (0-1) 06/21/17 18:38 Neutrophils # 5.6 K/mm3 (1.3-6.0) 06/21/17 18:38 Neutrophils # (Manual) 4.5 K/mm3 (1.3-6.0) 06/21/17 18:38 Lymphocytes # 1.4 k/mm3 (1.5-3.5) L 06/21/17 18:38 Lymphocytes # (Manual) 1.8 k/mm3 (1.5-3.5) 06/21/17 18:38 Monocytes # 1.9 k/mm3 (0.0-1.0) H 06/21/17 18:38 Monocytes # (Manual) 1.3 k/mm3 (0.0-1.0) H 06/21/17 18:38 Eosinophils # 0.1 k/mm3 (0.0-0.7) 06/21/17 18:38 Absolute Basophils 0.1 k/mm3 (0.0-0.1) 06/21/17 18:38 Platelet Estimate Increased (NORMAL) H 06/21/17 18:38 RBC Morphology Normal (NORMAL) 06/21/17 18:38 Sodium 134 mmol/L (132-142) 06/21/17 18:38 Plasma Sodium 134 mmol/L (130-142) 06/21/17 18:38 Potassium 3.4 mmol/L (3.4-4.6) D 06/21/17 18:38 Chloride 102 mmol/L (97-106) 06/21/17 18:38 Carbon Dioxide 17.5 mmol/L (24-32.6) L 06/21/17 18:38 Anion Gap 17.9 mmol/L (6.8-13.8) H 06/21/17 18:38 BUN 29 mg/dL (3-23) H 06/21/17 18:38 Creatinine 1.95 mg/dL (0.4-1.4) H D 06/21/17 18:38 Est GFR (Non-Af Amer) 27 mL/min (60-130) L D 06/21/17 18:38 BUN/Creatinine Ratio 14.9 (9.0-21.6) 06/21/17 18:38 Random Glucose 112 mg/dL (70-110) H 06/21/17 18:38 Calcium 7.9 mg/dL (7.9-10.9) 06/21/17 18:38 Calcium Adj for Albumin 8.7 mg/dL (8.4-10.2) 06/21/17 18:38 Total Bilirubin 0.3 mg/dL (0.0-1.1) 06/21/17 18:38 AST 10 U/L (0-48) 06/21/17 18:38 ALT 14 U/L (19-67) L 06/21/17 18:38 Alkaline Phosphatase 61 U/L (50-170) 06/21/17 18:38 C-Reactive Prot, Quant 2.3 mg/dL (0.0-0.9) H 06/21/17 Unknown Total Protein 5.9 gm/dL (6.2-8.2) L 06/21/17 18:38 Albumin 2.6 gm/dl (3.4-5.0) L 06/21/17 18:38 Urine Color Yellow 06/21/17 18:33 Urine Appearance Clear 06/21/17 18:33 Urine pH 6.0 pH (5.0-7.0) 06/21/17 18:33 Ur Specific [place] 1.025 SP.GR. (1.005-1.010) 06/21/17 18:33 Urine Protein 100 mg/dL (NEGATIVE) H 06/21/17 18:33 Urine Glucose (UA) Negative mg/dL (NEGATIVE) 06/21/17 18:33 Urine Ketones Negative mg/dL (NEGATIVE) 06/21/17 18:33 Urine Blood Negative /ul (NEGATIVE) 06/21/17 18:33 Urine Nitrate Negative (NEGATIVE) 06/21/17 18:33 Urine Bilirubin Negative mg/dl (NEGATIVE) 06/21/17 18:33 Prot Sulfosalicylic Acd 4+ mg/dL (0) H 06/21/17 18:33 Urine Urobilinogen Normal EU/dl (NORMAL) 06/21/17 18:33 Ur Leukocyte Esterase Negative /ul (NEGATIVE) 06/21/17 18:33 Urine RBC None seen /hpf (0-5) 06/21/17 18:33 Urine WBC 0-5 /hpf (0-5) 06/21/17 18:33 Ur Epithelial Cells None seen /hpf (0-5) 06/21/17 18:33 Urine Bacteria None seen (NONE) 06/21/17 18:33 Urine Culture Comments No culture indicated 06/21/17 18:33 Stl C.difficile Tox A&B Negative (Negative) 06/21/17 21:25 Assessment/Plan - Narrative Narrative: afib with rvr - afib is chronic - work on hr control - metoprolol 5 mg given iv x1 in er - will given 1 dose iv cardizem 10 mg - monitor on tele - vitals signs q 4 hours, sooner if needed - likely elevated due to dehydration secondary to poor intake and diarrhea Abdominal pain - with diarrhea - c diff negative - stool culture pending - c/o diffuse ab pain but is more tender to RUQ on exam - will order flat and upright ab xray - further orders based on results dehydration - likely aggrevating heart rate - 2 liters NS given in ER - will start NS at 150 ml / hr - hold home med dyazide while admitted Stable chronic medical conditions - COPD - HTN Code status: DNR VTE: early ambulation GI Proph: try one dose of IV protonix given abdominal pain. - Assessment/Plan (1) Atrial fibrillation with RVR Problem: Acute (2) Abdominal pain Problem: Acute Qualifiers: Abdominal location: right upper quadrant Qualified Code(s): R10.11 - Right upper quadrant pain (3) Dehydration Problem: Acute (4) HTN (hypertension) Problem: Chronic Qualifiers: Hypertension type: essential hypertension Qualified Code(s): I10 - Essential (primary) hypertension (5) COPD not affecting current episode of care Problem: Chronic (6) Depression with anxiety Problem: Chronic
[2017-06-21] MEDS ORDERED: DILTIAZEM HCL 5 MG/ML VIAL IV ONE (23:01)
[2017-06-21] MEDS: NORMAL SALINE 1,000 ML IV PRN (23:50)
[2017-06-22] MEDS: PANTOPRAZOLE SODIUM 40 MG in NORMAL SALINE 100 ML IV SCH ×2 (00:12→23:30)
[2017-06-22] MEDS ORDERED: BISACODYL 10 MG SUPP.RECT RC ONE (01:00)
[2017-06-22] MEDS ORDERED: MINERAL OIL 1 ENEMA BTL RC PRN (05:48)
--- NOTE | 2017-06-22 05:51 | PN ---
Subjective - Date and Time Seen Date: 06/22/17 Time: 05:39 Subjective Narrative: states she feels about the same. c/o feeling like she needs to have a BM. HR running 90s to 115s. Objective - Review of Systems Generalized/Overall Review: Reports: Malaise, Fatigue EENTM: Reports: No Symptoms Reported Respiratory: Reports: No Symptoms Reported Cardiac: Reports: No Symptoms Reported Abdominal: Reports: Abdominal Pain, Constipation Genitourinary Symptoms: Reports: No Symptoms Reported Musculoskeletal Complaints: Reports: No Symptoms Reported Neurological: Reports: No Symptoms Reported Skin: Reports: No Symptoms Reported - Vitals Vitals: Last Vital Signs Temp 36.8 C 06/22/17 03:27 Pulse 105 H 06/22/17 03:27 Resp 16 06/22/17 03:27 BP 99/48 06/22/17 04:55 Pulse Ox 97 06/22/17 03:27 - Abnormal Lab Findings Abnormal Lab Findings: Abnormal Lab Results 06/21/17 Range/Units Unknown C-Reactive Prot, Quant 2.3 H (0.0-0.9) mg/dL - Exam Constitutional: Present: Alert, Cooperative, No distress ENT Exam: Present: hearing grossly normal Neck: Present: supple Breasts: Present: Exam deferred Respiratory: Present: chest non-tender, normal breath sounds, no respiratory distress Cardiovascular/Chest: Present: normal peripheral pulses, tachycardia, irregularly irregular Abdomen: Present: soft, nondistended, tender - RUQ. Absent: guarding, rigidity /Rectal: Present: Exam deferred Extremity: Present: normal range of motion, non-tender, normal inspection Skin Exam: Present: normal color, warm/dry, no cyanosis Assessment/Plan Plan Narrative: afib with rvr - afib is chronic - work on hr control - metoprolol 5 mg given iv x1 in er - 1 dose cardizem iv given after admission to unit - HR running 90s-115 - up to 120s to 130s when up to bathroom - monitor on tele - vitals signs q 4 hours, sooner if needed - likely elevated due to dehydration secondary to poor intake and diarrhea - continue rhymol. Abdominal pain - with diarrhea - c diff negative - stool culture pending - c/o diffuse ab pain but is more tender to RUQ on exam - ab xray shows constipation - may be having diarrhea around her constipated stool - dulcolax supp. given this am. - no results so far, - fleets enema ordered prn x1 if no BM today or if pt requests. dehydration - likely aggrevating heart rate - 2 liters NS given in ER - will start NS at 150 ml / hr - HR seems to be responding to iv fluids - continue iv fluids today - hold home med dyazide while admitted Stable chronic medical conditions - COPD - HTN Code status: DNR VTE: early ambulation GI Proph: try one dose of IV protonix given abdominal pain. - Problems/Diagnosis (1) Atrial fibrillation with RVR Problem: Acute (2) Abdominal pain Problem: Acute Qualifiers: Abdominal location: right upper quadrant Qualified Code(s): R10.11 - Right upper quadrant pain (3) Dehydration Problem: Acute (4) HTN (hypertension) Problem: Chronic Qualifiers: Hypertension type: essential hypertension Qualified Code(s): I10 - Essential (primary) hypertension (5) COPD not affecting current episode of care Problem: Chronic (6) Depression with anxiety Problem: Chronic
[2017-06-22] MEDS ORDERED: BUDESONIDE 0.5 MG/2 ML VIAL.NEB IH ONE (06:12)
[2017-06-22] MEDS: BUDESONIDE 0.5 MG/2 ML VIAL.NEB IH SCH ×2 (06:16→09:59)
[2017-06-22 06:58] LABS: Anion Gap 15.1 mmol/L (6.8-13.8); BUN/Creatinine Ratio 16.4 (9.0-21.6); Calcium * 7.3 mg/dL (7.9-10.9); Carbon Dioxide 19.2 mmol/L (24-32.6); Estimated Creat Clear 30.8; Potassium 3.3 mmol/L (3.4-4.6)
[2017-06-22] MEDS ORDERED: FLUTICASONE/SALMETEROL 14 PUFF DISK.W.DEV IH SCH (07:00)
[2017-06-22] MEDS ORDERED: ALBUTEROL SULFATE 2.5 MG/3 ML VIAL.NEB IH PRN (07:18)
[2017-06-22] MEDS: NORMAL SALINE 1,000 ML IV PRN (07:22)
[2017-06-22] MEDS: PROPAFENONE HCL 150 MG TABLET PO SCH ×2 (07:51→17:01)
[2017-06-22] MEDS: LEVOTHYROXINE SODIUM 150 MCG TABLET PO SCH (07:51)
[2017-06-22] MEDS ORDERED: ALPRAZOLAM 1 MG PO SCH (09:00)
[2017-06-22] MEDS: FLUoxetine HCL 20 MG CAPSULE PO SCH (09:43)
[2017-06-22] MEDS ORDERED: BISACODYL 10 MG SUPP.RECT RC PRN (13:32)
[2017-06-22] MEDS: CIPROFLOXACIN HCL 250 MG TABLET PO SCH ×2 (13:35→20:08)
[2017-06-22] MEDS: FLUTICASONE/SALMETEROL 14 PUFF DISK.W.DEV IH SCH (18:31)
[2017-06-22] MEDS ORDERED: ALPRAZolam 1 MG TABLET ONE (20:05)
[2017-06-22] MEDS: ALPRAZolam 1 MG TABLET PO SCH (20:08)
[2017-06-23] MEDS ORDERED: DILTIAZEM HCL 5 MG/ML VIAL IV ONE ×4 (02:22→05:06)
[2017-06-23] MEDS ORDERED: LORazepam 2 MG/ML DISP.SYRIN IV PRN (03:09)
[2017-06-23] MEDS ORDERED: DILTIAZEM HCL 125 MG in DEXTROSE 5 % IN WATER 100 ML IV PRN ×2 (05:26)
[2017-06-23 05:28] LABS: Hematocrit 31.1 % (37.0-47.0); Hemoglobin 10.5 gm/dL (12.5-16.0); Mean Cell Volume 85.4 fl (78-100); Mean Corpuscular Hemoglobin 28.8 pg (27-31); Mean Corpuscular Hgb Conc 33.8 g/dl (32-36); Mean Platelet Volume 8.8 fl (6.0-9.5); Platelet Count 452 K/mm3 (150-450); Red Blood Count 3.64 M/mm3 (4.2-5.4); Red Cell Distribution Width 15.8 % (11.5-14.0); White Blood Count 7.7 K/mm3 (4.0-10.5)
--- NOTE | 2017-06-23 05:33 | PN ---
Subjective - Date and Time Seen Date: 06/23/17 Time: 05:28 Subjective Narrative: feeling better. denies cp, dyspnea or palpatations. HR after midnight running 120-150 - have tried 10 mg cardizem iv x1 then 5 mg cardizem x1 with no adequate decrease in hr. Objective - Review of Systems Generalized/Overall Review: Reports: Weakness EENTM: Reports: No Symptoms Reported Respiratory: Reports: No Symptoms Reported Cardiac: Reports: No Symptoms Reported Abdominal: Reports: No Symptoms Reported Genitourinary Symptoms: Reports: No Symptoms Reported Musculoskeletal Complaints: Reports: No Symptoms Reported Neurological: Reports: No Symptoms Reported Skin: Reports: No Symptoms Reported Endocrine: Reports: No Symptoms Reported Misc: All systems neg except as marked - Vitals Vitals: Last Vital Signs Temp 37.2 C 06/23/17 02:00 Pulse 141 H 06/23/17 05:07 Resp 24 H 06/23/17 02:00 BP 118/52 06/23/17 05:07 Pulse Ox 95 06/23/17 02:00 - Abnormal Lab Findings Abnormal Lab Findings: Abnormal Lab Results 06/22/17 Range/Units 06:45 Potassium 3.3 L (3.4-4.6) mmol/L Carbon Dioxide 19.2 L (24-32.6) mmol/L Anion Gap 15.1 H (6.8-13.8) mmol/L Est GFR (Non-Af Amer) 39 L D (60-130) mL/min Calcium 7.3 L (7.9-10.9) mg/dL - EKG/Xray Findings EKG: atrial fibrillation EKG read: Interp. by me - Exam Constitutional: Present: Cooperative, No distress Neck: Present: full range of motion, supple Breasts: Present: Exam deferred Respiratory: Present: chest non-tender, decreased breath sounds Cardiovascular/Chest: Present: normal peripheral pulses, tachycardia, irregularly irregular Abdomen: Present: soft, nontender, nondistended /Rectal: Present: Exam deferred Extremity: Present: non-tender, normal inspection Skin Exam: Present: normal color, warm/dry, no cyanosis Assessment/Plan Plan Narrative: afib with rvr - afib is chronic - work on hr control - metoprolol 5 mg given iv x1 in er - unable to obtain HR control with iv cardizem push - will transfer to SCU and start cardizem gtt - once hr improved, transition to oral cardizem - monitor on tele - vitals signs q 4 hours, sooner if needed - continue rhymol. Abdominal pain - with diarrhea - c diff negative - stool culture pending - improved after 4 BMs yesterday - xray also shows gas pattern c/w colitis - cipro continued for recent UTI dehydration - likely aggrevating heart rate - 2 liters NS given in ER - improved as creatinine back in normal range as of 06/22/17 - hold home med dyazide while admitted Stable chronic medical conditions - COPD - HTN Code status: DNR VTE: early ambulation GI Proph: protonix iv. - Problems/Diagnosis (1) Atrial fibrillation with RVR Problem: Acute (2) Abdominal pain Problem: Acute Qualifiers: Abdominal location: right upper quadrant Qualified Code(s): R10.11 - Right upper quadrant pain (3) Dehydration Problem: Acute (4) HTN (hypertension) Problem: Chronic Qualifiers: Hypertension type: essential hypertension Qualified Code(s): I10 - Essential (primary) hypertension (5) COPD not affecting current episode of care Problem: Chronic (6) Depression with anxiety Problem: Chronic
[2017-06-23 05:39] LABS: BUN/Creatinine Ratio 16.8 (9.0-21.6); Bilirubin, Total 0.4 mg/dL (0.0-1.1); Ca. Corrected For Albumin 8.6 mg/dL (8.4-10.2); Calcium * 7.3 mg/dL (7.9-10.9); Carbon Dioxide 17.9 mmol/L (24-32.6); Potassium 2.9 mmol/L (3.4-4.6); Total Cells Counted 100; Total Protein 4.8 gm/dL (6.2-8.2)
[2017-06-23] MEDS ORDERED: MAGNESIUM SULFATE 4 MEQ/ML VIAL IV ONE (05:55)
[2017-06-23 05:57] LABS: Atypical (Reactive) Lymph 1 % (0-2); Band 31 % (0-2.0); Lymphocyte 16 % (20-51); Microcytosis 1+; Monocyte 8 % (0-9); Neutrophil 44 % (42-75); Neutrophil # 3.4 K/mm3 (1.3-6.0); Platelet Estimate Increased (NORMAL)
[2017-06-23] MEDS: PROPAFENONE HCL 150 MG TABLET PO SCH ×2 (05:57→17:12)
[2017-06-23 05:58] LABS: Hypochromia Trace
[2017-06-23] MEDS ORDERED: ALBUTEROL SULFATE 2.5 MG/3 ML VIAL.NEB IH PRN (06:16)
[2017-06-23] MEDS ORDERED: NORMAL SALINE IV ONE (06:30)
[2017-06-23] MEDS ORDERED: MAGNESIUM SULFATE IV ONE (06:30)
[2017-06-23] MEDS ORDERED: CIPROFLOXACIN HCL 250 MG TABLET PO SCH (06:49)
[2017-06-23] MEDS: POTASSIUM CHLORIDE 100 ML IV SCH ×4 (07:04→10:12)
[2017-06-23] MEDS: NORMAL SALINE 1,000 ML IV PRN ×2 (07:21→17:56)
[2017-06-23] MEDS: BUDESONIDE 0.5 MG/2 ML VIAL.NEB IH SCH (09:45)
[2017-06-23] MEDS: ALPRAZolam 1 MG TABLET PO SCH ×3 (09:58→18:21)
[2017-06-23] MEDS: FLUTICASONE/SALMETEROL 14 PUFF DISK.W.DEV IH SCH ×2 (09:58→18:20)
[2017-06-23] MEDS: TIOTROPIUM BROMIDE 5 CAP INHALER IH SCH (09:59)
[2017-06-23] MEDS: metroNIDAZOLE 500 MG TABLET PO SCH ×3 (11:10→17:12)
[2017-06-23] MEDS: POTASSIUM CHLORIDE 20 MEQ TABLET.SA PO SCH ×2 (12:19→17:13)
[2017-06-23] MEDS: LEVOTHYROXINE SODIUM 150 MCG TABLET PO SCH ×2 (12:19→12:32)
[2017-06-23] MEDS: CIPROFLOXACIN HCL 500 MG TABLET PO SCH ×3 (12:19→20:14)
[2017-06-23] MEDS: FLUoxetine HCL 20 MG CAPSULE PO SCH ×2 (12:19→12:32)
[2017-06-23] MEDS ORDERED: ALPRAZolam 1 MG TABLET PO SCH (13:00)
[2017-06-23] MEDS ORDERED: NORMAL SALINE 500 ML IV ONE (16:30)
[2017-06-23] MEDS ORDERED: DILTIAZEM HCL 30 MG TABLET PO ONE (17:15)
[2017-06-23] MEDS: PANTOPRAZOLE SODIUM 40 MG in NORMAL SALINE 100 ML IV SCH (22:14)
[2017-06-23 22:27] LABS: Anion Gap 16.4 mmol/L (6.8-13.8); Calcium * 7.1 mg/dL (7.9-10.9); Carbon Dioxide 16.7 mmol/L (24-32.6); Estimated Creat Clear 43.1; Magnesium 1.6 mg/dL (1.2-2.8); Potassium 4.1 mmol/L (3.4-4.6)
[2017-06-24] MEDS: MAGNESIUM OXIDE 400 MG TABLET PO SCH ×4 (00:48→16:55)
[2017-06-24] MEDS ORDERED: DILTIAZEM HCL 30 MG TABLET PO SCH (03:00)
[2017-06-24] MEDS: NORMAL SALINE 1,000 ML IV PRN ×2 (03:55→14:05)
[2017-06-24] MEDS: PROPAFENONE HCL 150 MG TABLET PO SCH ×2 (05:17→17:39)
[2017-06-24 06:46] LABS: Anion Gap 15.4 mmol/L (6.8-13.8); BUN/Creatinine Ratio 15.4 (9.0-21.6); Calcium * 7.3 mg/dL (7.9-10.9); Carbon Dioxide 19.1 mmol/L (24-32.6); Estimated Creat Clear 47.3; Magnesium 1.5 mg/dL (1.2-2.8); Potassium 3.5 mmol/L (3.4-4.6); T4 Free * 0.94 ng/dL (0.76-1.46); TSH * 19.005 uIU/mL (0.358-3.74)
[2017-06-24] MEDS: LEVOTHYROXINE SODIUM 150 MCG TABLET PO SCH (07:44)
[2017-06-24] MEDS: FLUTICASONE/SALMETEROL 14 PUFF DISK.W.DEV IH SCH ×2 (07:50→18:52)
[2017-06-24] MEDS: DILTIAZEM HCL 120 MG CAP.SR.24H PO SCH (08:55)
[2017-06-24] MEDS: metroNIDAZOLE 500 MG TABLET PO SCH ×3 (08:56→16:53)
[2017-06-24] MEDS: POTASSIUM CHLORIDE 20 MEQ TABLET.SA PO SCH ×2 (08:57→16:54)
[2017-06-24] MEDS: FLUoxetine HCL 20 MG CAPSULE PO SCH (09:00)
[2017-06-24] MEDS: BUDESONIDE 0.5 MG/2 ML VIAL.NEB IH SCH (09:00)
[2017-06-24] MEDS: ALPRAZolam 1 MG TABLET PO SCH ×3 (09:04→20:21)
[2017-06-24] MEDS: BENZOCAINE/MENTHOL 16 EACH BOX MM PRN ×2 (09:06→16:52)
[2017-06-24] MEDS: TIOTROPIUM BROMIDE 5 CAP INHALER IH SCH (10:05)
[2017-06-24] MEDS: CIPROFLOXACIN HCL 500 MG TABLET PO SCH ×2 (10:05→20:20)
[2017-06-24] MEDS: PANTOPRAZOLE SODIUM 40 MG in NORMAL SALINE 100 ML IV SCH (23:30)
--- NOTE | 2017-06-24 23:59 | PN ---
Subjective - Date and Time Seen Date: 06/24/17 Objective - Vitals Vitals: Last Vital Signs Temp 36.5 C 06/24/17 22:34 Pulse 100 06/24/17 22:34 Resp 20 06/24/17 22:34 BP 123/60 06/24/17 22:34 Pulse Ox 93 06/24/17 22:34 - Abnormal Lab Findings Abnormal Lab Findings: Abnormal Lab Results 06/24/17 Range/Units 05:15 Chloride 109 H (97-106) mmol/L Carbon Dioxide 19.1 L (24-32.6) mmol/L Anion Gap 15.4 H (6.8-13.8) mmol/L Calcium 7.3 L (7.9-10.9) mg/dL TSH 19.005 H (0.358-3.74) uIU/mL
[2017-06-25] MEDS: PROPAFENONE HCL 150 MG TABLET PO SCH ×2 (05:31→20:10)
[2017-06-25] MEDS: FLUTICASONE/SALMETEROL 14 PUFF DISK.W.DEV IH SCH ×2 (06:47→20:11)
[2017-06-25] MEDS: LEVOTHYROXINE SODIUM 150 MCG TABLET PO SCH (06:47)
[2017-06-25] MEDS: DILTIAZEM HCL 120 MG CAP.SR.24H PO SCH (08:41)
[2017-06-25] MEDS: metroNIDAZOLE 500 MG TABLET PO SCH ×3 (08:42→16:41)
[2017-06-25] MEDS: FLUoxetine HCL 20 MG CAPSULE PO SCH (08:42)
[2017-06-25] MEDS: CIPROFLOXACIN HCL 500 MG TABLET PO SCH ×2 (08:42→22:10)
[2017-06-25] MEDS: TIOTROPIUM BROMIDE 5 CAP INHALER IH SCH (08:42)
[2017-06-25] MEDS: MAGNESIUM OXIDE 400 MG TABLET PO SCH ×3 (08:42→16:41)
[2017-06-25] MEDS: ALPRAZolam 1 MG TABLET PO SCH ×2 (08:48→22:10)
[2017-06-25 09:23] LABS: Hematocrit 32.8 % (37.0-47.0); Hemoglobin 10.7 gm/dL (12.5-16.0); Mean Cell Volume 88.4 fl (78-100); Mean Corpuscular Hemoglobin 28.8 pg (27-31); Mean Corpuscular Hgb Conc 32.6 g/dl (32-36); Platelet Count 380 K/mm3 (150-450); Red Blood Count 3.71 M/mm3 (4.2-5.4); Red Cell Distribution Width 16.7 % (11.5-14.0); White Blood Count 11.6 K/mm3 (4.0-10.5)
[2017-06-25 09:24] LABS: Total Cells Counted 100
[2017-06-25 09:35] LABS: Albumin * 1.8 gm/dl (3.4-5.0); Anion Gap 13.8 mmol/L (6.8-13.8); BUN/Creatinine Ratio 14.3 (9.0-21.6); Bilirubin, Total 0.3 mg/dL (0.0-1.1); Calcium * 7.6 mg/dL (7.9-10.9); Carbon Dioxide 19.5 mmol/L (24-32.6); Potassium 4.3 mmol/L (3.4-4.6); Total Protein 4.7 gm/dL (6.2-8.2)
[2017-06-25 10:07] LABS: Band 15 % (0-2.0); Eosinophil 1 % (0-3); Lymphocyte 3 % (20-51); Monocyte 15 % (0-9); Neutrophil 66 % (42-75); Neutrophil # 7.7 K/mm3 (1.3-6.0)
[2017-06-25 10:08] LABS: Platelet Estimate Normal (NORMAL)
[2017-06-25 10:12] LABS: Anisocytosis Trace
[2017-06-25] MEDS: ASPIRIN 81 MG TABLET.DR PO SCH (15:11)
[2017-06-25] MEDS: PANTOPRAZOLE SODIUM 40 MG in NORMAL SALINE 100 ML IV SCH (23:01)
--- NOTE | 2017-06-25 23:01 | PN ---
Subjective - Date and Time Seen Date: 06/25/17 Time: 16:45 Subjective Narrative: Patient was seen at approximately 0800, 1200, and 1645. Some confusion this morning but speaking understandably. Nursing noted patient was more confused and had slurred speech later in the day. Brain MRI was completed which showed no changes to the area of prior hemorrhage. There were a few small focal areas of possible acute ischemia. Patient reassessed and continues to have slurred speech and confusion. Objective - Vitals Vitals: Last Vital Signs Temp 36.7 C 06/25/17 22:35 Pulse 114 H 06/25/17 22:35 Resp 18 06/25/17 22:35 BP 125/51 06/25/17 22:35 Pulse Ox 96 06/25/17 22:35 - Abnormal Lab Findings Abnormal Lab Findings: Abnormal Lab Results 06/25/17 06/25/17 Range/Units 09:16 09:16 WBC 11.6 H D (4.0-10.5) K/mm3 RBC 3.71 L (4.2-5.4) M/mm3 Hgb 10.7 L (12.5-16.0) gm/dL Hct 32.8 L (37.0-47.0) % RDW 16.7 H (11.5-14.0) % Band Neuts % (Manual) 15 H (0-2.0) % Lymphocytes % (Manual) 3 L (20-51) % Monocytes % (Manual) 15 H (0-9) % Neutrophils # (Manual) 7.7 H (1.3-6.0) K/mm3 Lymphocytes # (Manual) 0.3 L (1.5-3.5) k/mm3 Monocytes # (Manual) 1.7 H (0.0-1.0) k/mm3 Chloride 111 H (97-106) mmol/L Carbon Dioxide 19.5 L (24-32.6) mmol/L Random Glucose 113 H D (70-110) mg/dL Calcium 7.6 L (7.9-10.9) mg/dL ALT 10 L (19-67) U/L Total Protein 4.7 L (6.2-8.2) gm/dL Albumin 1.8 L (3.4-5.0) gm/dl - Exam Constitutional: Present: Other - Confused with slurred speech ENT Exam: Present: hearing grossly normal Respiratory: Present: lungs clear, normal breath sounds Cardiovascular/Chest: Present: no murmur, irregularly irregular Abdomen: Present: Normal bowel sounds, soft, nondistended, tender - mild diffuse abdominal tenderness Extremity: Present: other - Right knee swollen and tender to palpation Skin Exam: Present: warm/dry Neurologic: Present: other - slurred speech, slight right droop Assessment/Plan Plan Narrative: Tala is a 76 yo female with: 1) New ischemic stroke - Increased confusion and slurred speech today prompted brain MRI to re-evaluate. Her changes were worsening of confusion and slurred speech that would come and go. She had no trauma in the hospital. There was not acutely new changes to warrant a stat CT and a brain mri was quickly available to be performed. Brain MRI showed acute ischemic stroke. Patient is not a candidate for TPA due to recent hemorrhagic stroke. Will consult neurology. Patient has reportedly not been on Aspirin. Will start aspirin 81mg daily and statin. 2) Afib with RVR - Chronically Afib. Heart rate was trending up yesterday evening, increased diltiazem to 180mg daily starting this morning 3) Hypothyroid has been corrected, will need to recheck TSH in 6 weeks 4) Right knee pain - No known injury, will monitor 5) UTI - Continue Cipro 6) Colitis - Cipro and Flagyl 7) Social - Looking into [facility] living for rehab following discharge - Problems/Diagnosis (1) Hypothyroidism Problem: Acute (2) Acute ischemic stroke Problem: Acute (3) Atrial fibrillation with RVR Problem: Acute (4) Knee pain, acute Problem: Acute (5) UTI (urinary tract infection) Problem: Acute Qualifiers: Urinary tract infection type: acute cystitis Hematuria presence: without hematuria Qualified Code(s): N30.00 - Acute cystitis without hematuria
[2017-06-25] MEDS ORDERED: DILTIAZEM HCL 30 MG TABLET PO ONE (23:03)
[2017-06-26] MEDS: PROPAFENONE HCL 150 MG TABLET PO SCH ×2 (05:53→18:26)
[2017-06-26] MEDS: FLUTICASONE/SALMETEROL 14 PUFF DISK.W.DEV IH SCH ×2 (07:18→19:26)
[2017-06-26] MEDS: LEVOTHYROXINE SODIUM 150 MCG TABLET PO SCH (07:18)
[2017-06-26] MEDS: DILTIAZEM HCL 180 MG CAP.SR.24H PO SCH (09:27)
[2017-06-26] MEDS: ASPIRIN 81 MG TABLET.DR PO SCH (09:28)
[2017-06-26] MEDS: TIOTROPIUM BROMIDE 5 CAP INHALER IH SCH (09:29)
[2017-06-26] MEDS: MAGNESIUM OXIDE 400 MG TABLET PO SCH ×3 (09:29→16:08)
[2017-06-26] MEDS: FLUoxetine HCL 20 MG CAPSULE PO SCH (09:29)
[2017-06-26] MEDS: CIPROFLOXACIN HCL 500 MG TABLET PO SCH ×2 (09:29→20:23)
[2017-06-26] MEDS: metroNIDAZOLE 500 MG TABLET PO SCH ×3 (09:29→16:08)
[2017-06-26] MEDS: ALPRAZolam 1 MG TABLET PO SCH ×2 (09:30→20:23)
[2017-06-26] MEDS: traMADol HCL 50 MG TABLET PO PRN (12:29)
[2017-06-26 16:33] LABS: Hematocrit 31.3 % (37.0-47.0); Hemoglobin 10.5 gm/dL (12.5-16.0); Mean Cell Volume 86.9 fl (78-100); Mean Corpuscular Hemoglobin 29.2 pg (27-31); Mean Corpuscular Hgb Conc 33.5 g/dl (32-36); Mean Platelet Volume 8.8 fl (6.0-9.5); Platelet Count 468 K/mm3 (150-450); Red Cell Distribution Width 16.7 % (11.5-14.0); White Blood Count 11.6 K/mm3 (4.0-10.5)
[2017-06-26 16:43] LABS: Total Cells Counted 100
[2017-06-26 16:48] LABS: CRP 8.3 mg/dL (0.0-0.9); Uric Acid 6.5 mg/dL (2.6-7.2)
--- NOTE | 2017-06-26 17:03 | PN ---
Subjective - Date and Time Seen Date: 06/26/17 Time: 17:03 Subjective Narrative: Tala reports right knee pain. Difficult to work with PT due to knee pain. Remains confused at times with slurred speech. Discussed conditions with daughter and son. Reports family history of gout but patient denies ever having it before. Objective - Vitals Vitals: Last Vital Signs Temp 36.2 C L 06/26/17 15:13 Pulse 100 06/26/17 15:13 Resp 18 06/26/17 15:13 BP 130/62 06/26/17 15:13 Pulse Ox 100 06/26/17 15:13 - Abnormal Lab Findings Abnormal Lab Findings: Abnormal Lab Results 06/26/17 Range/Units 16:28 WBC 11.6 H (4.0-10.5) K/mm3 RBC 3.60 L (4.2-5.4) M/mm3 Hgb 10.5 L (12.5-16.0) gm/dL Hct 31.3 L (37.0-47.0) % RDW 16.7 H (11.5-14.0) % Plt Count 468 H (150-450) K/mm3 - Exam Constitutional: Present: Alert, Oriented x3, Cooperative ENT Exam: Present: hearing grossly normal Respiratory: Present: lungs clear, normal breath sounds Cardiovascular/Chest: Present: no murmur, irregularly irregular Abdomen: Present: Normal bowel sounds, soft, nontender, nondistended Extremity: Present: other - Right knee diffusely swollen, warm, red Skin Exam: Present: other - Right knee red, warm to touch Neurologic: Present: alert, normal mood/affect, oriented x 3, motor weakness - Generalized weakness 4/5. No focal weakness., other - slurred speech. Absent: sensory deficit Assessment/Plan Plan Narrative: Tala is a 76 yo female with: 1) New ischemic stroke - Discussed with neurology. Patient with atrial fibrillation. Previously had a intraparenchymal hemorrhage on coumadin. This was discontinued two months ago and the patient was placed on Aspirin. She does not think she has been taking the aspirin. Neurology recommendations for aspirin for 2 weeks then placing on coumadin, xarelto, eliquis, or pradaxa. Discussed with patient and family. They do not want to be on anything other than aspirin due to bleeding risk. As she was not taking the aspirin at the time of this new ischemic stroke it may be reasonable to just be on aspirin 81mg daily for protection and minimize risk for hemorrhagic stroke. 2) Afib with RVR is controlled in rate on diltiazem orally. 3) Hypothyroid has been corrected, will need to recheck TSH in 6 weeks 4) Right knee pain - Xray showed effusion. Will get CBC, ESR, CRP, and uric acid. No known injury. 5) UTI - Continue Cipro 6) Colitis - Cipro and Flagyl 7) Social - Accepted to [facility] for rehab. Unable to discharge at this time as WBC remains elevated, although bands are decreasing. - Problems/Diagnosis (1) Acute ischemic stroke Problem: Acute (2) Atrial fibrillation with RVR Problem: Acute (3) Knee pain, acute Problem: Acute (4) Colitis Problem: Acute (5) UTI (urinary tract infection) Problem: Acute Qualifiers: Urinary tract infection type: acute cystitis Hematuria presence: without hematuria Qualified Code(s): N30.00 - Acute cystitis without hematuria
[2017-06-26 18:15] LABS: Band 2 % (0-2.0); Eosinophil 2 % (0-3); Lymphocyte 13 % (20-51); Monocyte 8 % (0-9); Neutrophil 75 % (42-75); Neutrophil # 8.7 K/mm3 (1.3-6.0)
[2017-06-26 18:16] LABS: Platelet Estimate Increased (NORMAL); RBC Morphology Normal (NORMAL)
[2017-06-26] MEDS: PANTOPRAZOLE SODIUM 40 MG in NORMAL SALINE 100 ML IV SCH (23:29)
[2017-06-27] MEDS: PROPAFENONE HCL 150 MG TABLET PO SCH ×2 (05:11→17:31)
[2017-06-27] MEDS: LEVOTHYROXINE SODIUM 150 MCG TABLET PO SCH (07:17)
[2017-06-27] MEDS: FLUTICASONE/SALMETEROL 14 PUFF DISK.W.DEV IH SCH ×2 (07:18→20:19)
[2017-06-27] MEDS: metroNIDAZOLE 500 MG TABLET PO SCH ×3 (08:45→17:30)
[2017-06-27] MEDS: ASPIRIN 81 MG TABLET.DR PO SCH (08:45)
[2017-06-27] MEDS: INDOMETHACIN 25 MG CAPSULE PO SCH ×3 (08:45→17:31)
[2017-06-27] MEDS: FLUoxetine HCL 20 MG CAPSULE PO SCH (08:45)
[2017-06-27] MEDS: DILTIAZEM HCL 180 MG CAP.SR.24H PO SCH (08:46)
[2017-06-27] MEDS: CIPROFLOXACIN HCL 500 MG TABLET PO SCH ×2 (08:46→20:19)
[2017-06-27] MEDS: TIOTROPIUM BROMIDE 5 CAP INHALER IH SCH (08:50)
[2017-06-27] MEDS: BENZOCAINE/MENTHOL 16 EACH BOX MM PRN (08:53)
[2017-06-27] MEDS: ALPRAZolam 1 MG TABLET PO SCH ×2 (08:58→20:18)
[2017-06-27] MEDS: traMADol HCL 50 MG TABLET PO PRN (09:49)
[2017-06-27 10:12] LABS: Hematocrit 34.4 % (37.0-47.0); Hemoglobin 11.3 gm/dL (12.5-16.0); Mean Cell Volume 88.2 fl (78-100); Mean Corpuscular Hgb Conc 32.8 g/dl (32-36); Mean Platelet Volume 8.7 fl (6.0-9.5); Neutrophil # 11.4 K/mm3 (1.3-6.0); Neutrophil % 76.8 % (42-75.0); Platelet Count 536 K/mm3 (150-450); Red Cell Distribution Width 16.9 % (11.5-14.0); White Blood Count 14.9 K/mm3 (4.0-10.5)
[2017-06-27 10:21] LABS: Albumin * 1.8 gm/dl (3.4-5.0); Anion Gap 12.7 mmol/L (6.8-13.8); Bilirubin, Total 0.3 mg/dL (0.0-1.1); CRP 7.8 mg/dL (0.0-0.9); Ca. Corrected For Albumin 9.1 mg/dL (8.4-10.2); Calcium * 7.7 mg/dL (7.9-10.9); Carbon Dioxide 22.3 mmol/L (24-32.6)
[2017-06-27] MEDS: ROSUVASTATIN CALCIUM 20 MG TABLET PO SCH (20:20)
--- NOTE | 2017-06-27 23:44 | PN ---
Subjective - Date and Time Seen Date: 06/27/17 Time: 14:00 Subjective Narrative: Tala reports continued right knee pain, making it difficult for PT. No abdominal pain, shortness of breath, fever, or chills. Objective - Vitals Vitals: Last Vital Signs Temp 37.0 C 06/27/17 22:36 Pulse 88 06/27/17 22:36 Resp 20 06/27/17 22:36 BP 105/50 06/27/17 22:36 Pulse Ox 95 06/27/17 22:36 - Abnormal Lab Findings Abnormal Lab Findings: Abnormal Lab Results 06/27/17 06/27/17 Range/Units 10:02 10:02 WBC 14.9 H D (4.0-10.5) K/mm3 RBC 3.90 L (4.2-5.4) M/mm3 Hgb 11.3 L (12.5-16.0) gm/dL Hct 34.4 L (37.0-47.0) % RDW 16.9 H (11.5-14.0) % Plt Count 536 H (150-450) K/mm3 Immature Gran % (Auto) 3.50 H (0.001-0.429) % Immature Gran # (Auto) 0.52 H (0.000-0.0310) K/mm3 Neutrophils % 76.8 H (42-75.0) % Lymphocytes % 8.6 L (20-51) % Monocytes % 10.2 H (0.0-9) % Neutrophils # 11.4 H (1.3-6.0) K/mm3 Lymphocytes # 1.3 L (1.5-3.5) k/mm3 Monocytes # 1.5 H (0.0-1.0) k/mm3 Chloride 108 H (97-106) mmol/L Carbon Dioxide 22.3 L (24-32.6) mmol/L Est GFR (Non-Af Amer) 57 L (60-130) mL/min Random Glucose 122 H (70-110) mg/dL Calcium 7.7 L (7.9-10.9) mg/dL ALT 12 L (19-67) U/L C-Reactive Prot, Quant 7.8 H (0.0-0.9) mg/dL Total Protein 5.0 L (6.2-8.2) gm/dL Albumin 1.8 L (3.4-5.0) gm/dl - Exam Constitutional: Present: Alert, Other - slurred speech, improved from yesterday ENT Exam: Present: hearing grossly normal Respiratory: Present: lungs clear, normal breath sounds Cardiovascular/Chest: Present: no murmur, irregularly irregular Abdomen: Present: Normal bowel sounds, soft, nontender, nondistended Extremity: Present: other - Right knee is warm to touch, but less swollen today and no erythema compared to yesterday Skin Exam: Present: normal color Assessment/Plan Plan Narrative: Tala is a 76 yo female with: 1) New ischemic stroke - Discussed with neurology. Patient with atrial fibrillation. Previously had a intraparenchymal hemorrhage on coumadin. This was discontinued two months ago and the patient was placed on Aspirin. She does not think she has been taking the aspirin. Neurology recommendations for aspirin for 2 weeks then placing on coumadin, xarelto, eliquis, or pradaxa. Discussed with patient and family. They do not want to be on anything other than aspirin due to bleeding risk. As she was not taking the aspirin at the time of this new ischemic stroke it may be reasonable to just be on aspirin 81mg daily for protection and minimize risk for hemorrhagic stroke. Continue Aspirin 81mg daily and Crestor 20mg Daily. 2) Afib with RVR is controlled in rate on diltiazem orally. 3) Hypothyroid has been corrected, will need to recheck TSH in 6 weeks 4) Right knee pain - High normal Uric acid, suspect gout. Unlikely septic arthritis. Started indomethicin. 5) UTI - Continue Cipro 6) Colitis - Cipro and Flagyl, symptoms resolved. 7) Social - Accepted to [facility] for rehab. Unable to discharge at this time as WBC remains elevated, although bands are no longer present. Expect WBC to now trend down to normal and plan to discharge to [place] on Friday. - Problems/Diagnosis (1) Hypothyroidism Problem: Acute (2) Acute ischemic stroke Problem: Acute (3) Atrial fibrillation with RVR Problem: Acute (4) UTI (urinary tract infection) Problem: Acute Qualifiers: Urinary tract infection type: acute cystitis Hematuria presence: without hematuria Qualified Code(s): N30.00 - Acute cystitis without hematuria (5) Gout Problem: Acute
[2017-06-28] MEDS: PROPAFENONE HCL 150 MG TABLET PO SCH ×2 (05:20→17:41)
[2017-06-28 06:13] LABS: Hematocrit 30.1 % (37.0-47.0); Hemoglobin 9.8 gm/dL (12.5-16.0); Mean Cell Volume 88.8 fl (78-100); Mean Corpuscular Hemoglobin 28.9 pg (27-31); Mean Corpuscular Hgb Conc 32.6 g/dl (32-36); Neutrophil # 5.7 K/mm3 (1.3-6.0); Neutrophil % 64.4 % (42-75.0); Platelet Count 464 K/mm3 (150-450); Red Blood Count 3.39 M/mm3 (4.2-5.4); Red Cell Distribution Width 16.6 % (11.5-14.0); White Blood Count 8.9 K/mm3 (4.0-10.5)
[2017-06-28 06:31] LABS: Albumin * 1.6 gm/dl (3.4-5.0); BUN/Creatinine Ratio 19.5 (9.0-21.6); Bilirubin, Total 0.2 mg/dL (0.0-1.1); CRP 6.1 mg/dL (0.0-0.9); Ca. Corrected For Albumin 9.2 mg/dL (8.4-10.2); Calcium * 7.6 mg/dL (7.9-10.9); Carbon Dioxide 21.2 mmol/L (24-32.6); Potassium 4.2 mmol/L (3.4-4.6); Total Protein 4.5 gm/dL (6.2-8.2)
--- NOTE | 2017-06-28 07:03 | PN ---
Subjective - Date and Time Seen Date: 06/28/17 Time: 06:52 Subjective Narrative: Ms. Khan examined this am. Reports having sores on mouth. Says her tongue is tender whenever she eats. WBC is improved this am. Complaints on RT knee pain. No other issues according to nursing. Objective - Vitals Vitals: Last Vital Signs Temp 36.3 C L 06/28/17 06:00 Pulse 72 06/28/17 06:00 Resp 18 06/28/17 06:00 BP 100/46 06/28/17 06:00 Pulse Ox 97 06/28/17 06:00 - Abnormal Lab Findings Abnormal Lab Findings: Abnormal Lab Results 06/27/17 06/27/17 06/28/17 Range/Units 10:02 10:02 05:20 WBC 14.9 H D (4.0-10.5) K/mm3 RBC 3.90 L 3.39 L (4.2-5.4) M/mm3 Hgb 11.3 L 9.8 L (12.5-16.0) gm/dL Hct 34.4 L 30.1 L (37.0-47.0) % RDW 16.9 H 16.6 H (11.5-14.0) % Plt Count 536 H 464 H (150-450) K/mm3 Immature Gran % (Auto) 3.50 H 3.00 H (0.001-0.429) % Immature Gran # (Auto) 0.52 H 0.27 H (0.000-0.0310) K/mm3 Neutrophils % 76.8 H (42-75.0) % Lymphocytes % 8.6 L 16.8 L (20-51) % Monocytes % 10.2 H 13.3 H (0.0-9) % Neutrophils # 11.4 H (1.3-6.0) K/mm3 Lymphocytes # 1.3 L (1.5-3.5) k/mm3 Monocytes # 1.5 H 1.2 H (0.0-1.0) k/mm3 Chloride 108 H (97-106) mmol/L Carbon Dioxide 22.3 L (24-32.6) mmol/L Anion Gap (6.8-13.8) mmol/L BUN (3-23) mg/dL Est GFR (Non-Af Amer) 57 L (60-130) mL/min Random Glucose 122 H (70-110) mg/dL Calcium 7.7 L (7.9-10.9) mg/dL ALT 12 L (19-67) U/L C-Reactive Prot, Quant 7.8 H (0.0-0.9) mg/dL Total Protein 5.0 L (6.2-8.2) gm/dL Albumin 1.8 L (3.4-5.0) gm/dl 06/28/17 Range/Units 05:20 WBC (4.0-10.5) K/mm3 RBC (4.2-5.4) M/mm3 Hgb (12.5-16.0) gm/dL Hct (37.0-47.0) % RDW (11.5-14.0) % Plt Count (150-450) K/mm3 Immature Gran % (Auto) (0.001-0.429) % Immature Gran # (Auto) (0.000-0.0310) K/mm3 Neutrophils % (42-75.0) % Lymphocytes % (20-51) % Monocytes % (0.0-9) % Neutrophils # (1.3-6.0) K/mm3 Lymphocytes # (1.5-3.5) k/mm3 Monocytes # (0.0-1.0) k/mm3 Chloride 109 H (97-106) mmol/L Carbon Dioxide 21.2 L (24-32.6) mmol/L Anion Gap 15.0 H (6.8-13.8) mmol/L BUN 26 H D (3-23) mg/dL Est GFR (Non-Af Amer) 41 L D (60-130) mL/min Random Glucose (70-110) mg/dL Calcium 7.6 L (7.9-10.9) mg/dL ALT 9 L (19-67) U/L C-Reactive Prot, Quant 6.1 H (0.0-0.9) mg/dL Total Protein 4.5 L (6.2-8.2) gm/dL Albumin 1.6 L (3.4-5.0) gm/dl - Exam Constitutional: Present: Alert, Oriented x3, Cooperative, No distress ENT Exam: Present: normal ENT inspection, hearing grossly normal Neck: Present: non-tender, full range of motion, supple Breasts: Present: Exam deferred Respiratory: Present: normal breath sounds, No rales, No wheezing Cardiovascular/Chest: Present: regular rate, rhythm, no chest tenderness, no edema Abdomen: Present: Normal bowel sounds, soft, nontender /Rectal: Present: Exam deferred Extremity: Present: normal range of motion, non-tender, normal inspection Skin Exam: Present: warm/dry, no cyanosis Lymphatic: Present: no adenopathy Neurologic: Present: no motor/sensory deficits, alert, normal mood/affect, oriented x 3 Appearance: Present: appropriate appearance, appropriate insight Eye contact: Present: cooperative, good eye contact, normal speech Thoughts: Present: normal thought pattern, no apparent hallucination Assessment/Plan Plan Narrative: Tala is a 76 yo female with: 1) New ischemic stroke - Discussed with neurology. Patient with atrial fibrillation. Previously had a intraparenchymal hemorrhage on coumadin. This was discontinued two months ago and the patient was placed on Aspirin. She does not think she has been taking the aspirin. Neurology recommendations for aspirin for 2 weeks then placing on coumadin, xarelto, eliquis, or pradaxa. Discussed with patient and family. They do not want to be on anything other than aspirin due to bleeding risk. As she was not taking the aspirin at the time of this new ischemic stroke it may be reasonable to just be on aspirin 81mg daily for protection and minimize risk for hemorrhagic stroke. Continue Aspirin 81mg daily and Crestor 20mg Daily. 2) Afib with RVR is controlled in rate on diltiazem orally. 3) Hypothyroid has been corrected, will need to recheck TSH in 6 weeks 4) Right knee pain - High normal Uric acid, suspect gout. Unlikely septic arthritis. Started indomethicin. 5) UTI - Continue Cipro 6) Colitis - Cipro and Flagyl, symptoms resolved. 7) Social - Accepted to [facility] for rehab. Unable to discharge at this time as WBC remains elevated, although bands are no longer present. Expect WBC to now trend down to normal and plan to discharge to [place] on Friday. This am WBC - Problems/Diagnosis (1) Acute ischemic stroke Problem: Acute (2) Atrial fibrillation with RVR Problem: Acute (3) Gout Problem: Chronic (4) Hypothyroidism Problem: Chronic (5) HTN (hypertension) Problem: Chronic Qualifiers: Hypertension type: essential hypertension Qualified Code(s): I10 - Essential (primary) hypertension (6) UTI (urinary tract infection) Problem: Chronic Qualifiers: Urinary tract infection type: acute cystitis Hematuria presence: without hematuria Qualified Code(s): N30.00 - Acute cystitis without hematuria
[2017-06-28] MEDS: LEVOTHYROXINE SODIUM 150 MCG TABLET PO SCH (07:15)
[2017-06-28] MEDS: FLUTICASONE/SALMETEROL 14 PUFF DISK.W.DEV IH SCH ×2 (07:15→18:57)
[2017-06-28] MEDS: INDOMETHACIN 25 MG CAPSULE PO SCH ×3 (08:52→17:41)
[2017-06-28] MEDS: metroNIDAZOLE 500 MG TABLET PO SCH ×3 (08:53→17:41)
[2017-06-28] MEDS: CIPROFLOXACIN HCL 500 MG TABLET PO SCH ×2 (08:53→20:33)
[2017-06-28] MEDS: FLUoxetine HCL 20 MG CAPSULE PO SCH (08:54)
[2017-06-28] MEDS: ASPIRIN 81 MG TABLET.DR PO SCH (08:54)
[2017-06-28] MEDS ORDERED: NYSTATIN 60 ML BTL PO SCH (09:00)
[2017-06-28] MEDS: DILTIAZEM HCL 180 MG CAP.SR.24H PO SCH (09:03)
[2017-06-28] MEDS: TIOTROPIUM BROMIDE 5 CAP INHALER IH SCH (09:07)
[2017-06-28] MEDS: ALPRAZolam 1 MG TABLET PO SCH ×2 (09:09→20:41)
[2017-06-28] MEDS ORDERED: NYSTATIN 30 ML, diphenhydrAMINE HCL 75 MG, LIDOCAINE HCL 30 ML, MAG HYDROX/ALUMINUM HYD... PO SCH ×4 (11:00)
[2017-06-28] MEDS: ROSUVASTATIN CALCIUM 20 MG TABLET PO SCH (20:33)
[2017-06-28] MEDS: traMADol HCL 50 MG TABLET PO PRN (20:40)
[2017-06-29] MEDS: PROPAFENONE HCL 150 MG TABLET PO SCH ×2 (05:19→17:06)
--- NOTE | 2017-06-29 06:09 | PN ---
Subjective - Date and Time Seen Date: 06/29/17 Time: 06:03 Subjective Narrative: Ms. Khan examined this am. Still complains of sore mouth and tongue-did not receive her Magic mouthwash. Has no other complains. WBC is withing NR. Denies RT knee pain. Awaiting placement on Friday. Objective - Vitals Vitals: Last Vital Signs Temp 36.4 C L 06/29/17 02:51 Pulse 80 06/29/17 04:00 Resp 18 06/29/17 02:51 BP 111/63 06/29/17 02:51 Pulse Ox 96 06/29/17 02:51 - Abnormal Lab Findings Abnormal Lab Findings: Abnormal Lab Results 06/28/17 06/28/17 Range/Units 05:20 05:20 RBC 3.39 L (4.2-5.4) M/mm3 Hgb 9.8 L (12.5-16.0) gm/dL Hct 30.1 L (37.0-47.0) % RDW 16.6 H (11.5-14.0) % Plt Count 464 H (150-450) K/mm3 Immature Gran % (Auto) 3.00 H (0.001-0.429) % Immature Gran # (Auto) 0.27 H (0.000-0.0310) K/mm3 Lymphocytes % 16.8 L (20-51) % Monocytes % 13.3 H (0.0-9) % Monocytes # 1.2 H (0.0-1.0) k/mm3 Chloride 109 H (97-106) mmol/L Carbon Dioxide 21.2 L (24-32.6) mmol/L Anion Gap 15.0 H (6.8-13.8) mmol/L BUN 26 H D (3-23) mg/dL Est GFR (Non-Af Amer) 41 L D (60-130) mL/min Calcium 7.6 L (7.9-10.9) mg/dL ALT 9 L (19-67) U/L C-Reactive Prot, Quant 6.1 H (0.0-0.9) mg/dL Total Protein 4.5 L (6.2-8.2) gm/dL Albumin 1.6 L (3.4-5.0) gm/dl - Exam Constitutional: Present: Alert, Oriented x3, Cooperative, No distress ENT Exam: Present: normal ENT inspection, dry mucous membranes Neck: Present: non-tender, full range of motion, supple Breasts: Present: Exam deferred Respiratory: Present: lungs clear, No wheezing Cardiovascular/Chest: Present: normal peripheral pulses, regular rate, rhythm, no chest tenderness Abdomen: Present: Normal bowel sounds, soft, nontender /Rectal: Present: Exam deferred Extremity: Present: normal range of motion, non-tender, no pedal edema Skin Exam: Present: warm/dry, no cyanosis Lymphatic: Present: no adenopathy Neurologic: Present: no motor/sensory deficits, alert, oriented x 3. Absent: dizzy/light-headedness Appearance: Present: appropriate appearance, appropriate insight Eye contact: Present: cooperative, good eye contact, normal speech Thoughts: Present: normal thought pattern, no apparent hallucination Assessment/Plan Plan Narrative: Tala is a 76 yo female with: 1) New ischemic stroke - Discussed with neurology. Patient with atrial fibrillation. Previously had a intraparenchymal hemorrhage on coumadin. This was discontinued two months ago and the patient was placed on Aspirin. She does not think she has been taking the aspirin. Neurology recommendations for aspirin for 2 weeks then placing on coumadin, xarelto, eliquis, or pradaxa. Discussed with patient and family. They do not want to be on anything other than aspirin due to bleeding risk. As she was not taking the aspirin at the time of this new ischemic stroke it may be reasonable to just be on aspirin 81mg daily for protection and minimize risk for hemorrhagic stroke. Continue Aspirin 81mg daily and Crestor 20mg Daily. 2) Afib with RVR is controlled in rate on diltiazem orally. 3) Hypothyroid has been corrected, will need to recheck TSH in 6 weeks 4) Right knee pain - High normal Uric acid, suspect gout. Unlikely septic arthritis. Started indomethicin. 5) UTI - Continue Cipro 6) Colitis - Cipro and Flagyl, symptoms resolved. 7) Social - Accepted to [facility] for rehab. Unable to discharge at this time as WBC remains elevated, although bands are no longer present. Expect WBC to now trend down to normal and plan to discharge to [place] on Friday. This am WBC - Problems/Diagnosis (1) Acute ischemic stroke Problem: Acute (2) Atrial fibrillation with RVR Problem: Acute (3) Gout Problem: Chronic (4) Hypothyroidism Problem: Chronic (5) HTN (hypertension) Problem: Chronic Qualifiers: Hypertension type: essential hypertension Qualified Code(s): I10 - Essential (primary) hypertension (6) UTI (urinary tract infection) Problem: Chronic Qualifiers: Urinary tract infection type: acute cystitis Hematuria presence: without hematuria Qualified Code(s): N30.00 - Acute cystitis without hematuria
[2017-06-29] MEDS: LEVOTHYROXINE SODIUM 150 MCG TABLET PO SCH (07:37)
[2017-06-29] MEDS: FLUTICASONE/SALMETEROL 14 PUFF DISK.W.DEV IH SCH ×2 (07:37→18:11)
[2017-06-29 08:22] LABS: Hematocrit 31.2 % (37.0-47.0); Hemoglobin 10.2 gm/dL (12.5-16.0); Mean Cell Volume 88.6 fl (78-100); Mean Corpuscular Hgb Conc 32.7 g/dl (32-36); Mean Platelet Volume 8.4 fl (6.0-9.5); Platelet Count 452 K/mm3 (150-450); Red Blood Count 3.52 M/mm3 (4.2-5.4); Red Cell Distribution Width 16.4 % (11.5-14.0); White Blood Count 12.3 K/mm3 (4.0-10.5)
[2017-06-29 08:29] LABS: Anion Gap 13.1 mmol/L (6.8-13.8); BUN/Creatinine Ratio 21.1 (9.0-21.6); Calcium * 7.7 mg/dL (7.9-10.9); Carbon Dioxide 22.1 mmol/L (24-32.6); Potassium 4.2 mmol/L (3.4-4.6)
[2017-06-29] MEDS: INDOMETHACIN 25 MG CAPSULE PO SCH ×3 (08:54→17:03)
[2017-06-29] MEDS: metroNIDAZOLE 500 MG TABLET PO SCH ×3 (08:55→17:05)
[2017-06-29] MEDS: ASPIRIN 81 MG TABLET.DR PO SCH (08:55)
[2017-06-29] MEDS: FLUoxetine HCL 20 MG CAPSULE PO SCH (08:55)
[2017-06-29] MEDS: ALPRAZolam 1 MG TABLET PO SCH ×2 (08:55→20:02)
[2017-06-29] MEDS: TIOTROPIUM BROMIDE 5 CAP INHALER IH SCH (08:55)
[2017-06-29] MEDS: DILTIAZEM HCL 180 MG CAP.SR.24H PO SCH (08:56)
[2017-06-29] MEDS: CIPROFLOXACIN HCL 500 MG TABLET PO SCH ×2 (08:56→20:02)
[2017-06-29] MEDS: NYSTATIN 30 ML, diphenhydrAMINE HCL 75 MG, LIDOCAINE HCL 30 ML, MAG HYDROX/ALUMINUM HYD... PO PRN ×12 (08:57→20:05)
[2017-06-29 09:15] LABS: Iron 24 mcg/dL (35-120); Transferrin Sat. (% Sat.) 15 % (15-55)
[2017-06-29 09:49] LABS: Folate 5.4 ng/mL (>5.4)
[2017-06-29] MEDS: ROSUVASTATIN CALCIUM 20 MG TABLET PO SCH (20:02)
[2017-06-30] MEDS: NYSTATIN 30 ML, diphenhydrAMINE HCL 75 MG, LIDOCAINE HCL 30 ML, MAG HYDROX/ALUMINUM HYD... PO PRN ×4 (04:22)
[2017-06-30] MEDS: PROPAFENONE HCL 150 MG TABLET PO SCH (05:26)
[2017-06-30 05:59] LABS: Hemoglobin 9.4 gm/dL (12.5-16.0); Mean Cell Volume 89.8 fl (78-100); Mean Corpuscular Hemoglobin 29.1 pg (27-31); Mean Corpuscular Hgb Conc 32.4 g/dl (32-36); Mean Platelet Volume 8.6 fl (6.0-9.5); Neutrophil # 6.8 K/mm3 (1.3-6.0); Platelet Count 446 K/mm3 (150-450); Red Blood Count 3.23 M/mm3 (4.2-5.4); Red Cell Distribution Width 16.1 % (11.5-14.0); White Blood Count 9.8 K/mm3 (4.0-10.5)
[2017-06-30 06:17] LABS: BUN/Creatinine Ratio 22.8 (9.0-21.6); Carbon Dioxide 23.3 mmol/L (24-32.6); Estimated Creat Clear 37.8; Potassium 4.3 mmol/L (3.4-4.6)
[2017-06-30] MEDS: FLUTICASONE/SALMETEROL 14 PUFF DISK.W.DEV IH SCH (06:37)
[2017-06-30] MEDS: LEVOTHYROXINE SODIUM 150 MCG TABLET PO SCH (06:38)
[2017-06-30] MEDS: metroNIDAZOLE 500 MG TABLET PO SCH (09:16)
[2017-06-30] MEDS: ASPIRIN 81 MG TABLET.DR PO SCH (09:16)
[2017-06-30] MEDS: FLUoxetine HCL 20 MG CAPSULE PO SCH (09:16)
[2017-06-30] MEDS: TIOTROPIUM BROMIDE 5 CAP INHALER IH SCH (09:16)
[2017-06-30] MEDS: INDOMETHACIN 25 MG CAPSULE PO SCH (09:16)
[2017-06-30] MEDS: DILTIAZEM HCL 180 MG CAP.SR.24H PO SCH (09:16)
[2017-06-30] MEDS: CIPROFLOXACIN HCL 500 MG TABLET PO SCH (09:16)
[2017-06-30] MEDS: ALPRAZolam 1 MG TABLET PO SCH (09:20)
[2017-06-30 10:45] VITALS: BP 111/44
--- NOTE | 2017-06-30 10:51 | DS ---
(1) Acute ischemic stroke Problem: Acute (2) Atrial fibrillation with RVR Problem: Acute (3) Colitis Problem: Acute (4) Knee pain, acute Problem: Acute Qualifiers: Laterality: right Qualified Code(s): M25.561 - Pain in right knee (5) COPD not affecting current episode of care Problem: Chronic (6) Depression with anxiety Problem: Chronic (7) Gout Problem: Suspected Qualifiers: Gout site: knee Laterality: right (8) HTN (hypertension) Problem: Chronic Qualifiers: Hypertension type: essential hypertension Qualified Code(s): I10 - Essential (primary) hypertension (9) Hypothyroidism Problem: Chronic Description of Stay: ADMISSION DATE: 06/21/2017 DISCHARGE DATE: 06/30/2017 ADMISSION HPI BY ANDREA GOFF: Tala is a 76 year old female patient of Dr Harmon with a PMH of afib (not on anticoagulation due to ICH / subdural hematoma 03/2017), COPD, depression / anxiety and HTN who presented to the ER with c/o abdominal pain, weakness and fatigue for 5 days. patient states she was started on bactrim DS on friday for UTI but that the medication made her sick to her stomach. Thus, she was recently changed to cipro a few days ago. patient states that she has had diarrhea for 4 days. ER eval revealed normal wbc and neutrophils. CMP remarkable for BUN/creatinine at 29/1.95. baseline creatinine is around 0.9. UA positive for 100 protein. c diff negative. HR running 115-150. patient was given 2 liters NS in the ER with 5 mg iv lopressor. patient to be admitted for afib with rvr, dehydration and abdominal pain. HOSPITAL COURSE: The patient was admitted to the hospital for abdominal pain, generalized weakness and fatigue, diarrhea, dehydration and A. fib with RVR. Abdominal x- ray on admission showed concerns of a possible colitis. The patient was ordered on ciprofloxacin for a UTI that was diagnosed prior to admission and Flagyl was added to his regimen for treatment of colitis. On discharge, the patient will complete 2 additional days of Cipro and Flagyl. During the patients admission, she complained of right knee pain which was felt to be secondary to possible gout. A uric acid level was within normal limits, however during an acute gout flare it is not uncommon for the uric acid level to be normal. Thus, she was started on indomethacin and will need to follow up with her primary care provider for further management. The patient appears to have a chronically elevated platelet count but I am unsure whether this has been investigated further in the past or not; consider referral to hematology if PCP feels this is indicated. Given her diagnosis of atrial fibrillation as well as his chronically elevated platelet count and findings on MRI, the patient would benefit from stronger antiplatelet therapy and/or anticoagulation. However, this was discussed at length with the patient and her family by Dr. josefina rodriguez and they are adamant that the patient will only be on aspirin 81 mg daily, nothing stronger. Also during the patients admission, she complained of her tongue being sore and painful and on exam was consistent with glossitis of unclear etiology. She was treated with Magic mouthwash. B12 and folate levels were checked and there are no signs of deficiency. Iron panel was also checked and revealed a low iron level at 24. The patient was started on ferrous sulfate 325mg PO BID with meals. I would recommend rechecking an iron panel in approximately 3-6 months. The patient was also started on Senna-S BID to hopefully help avoid any possible constipation related to the iron. DISPOSITION: Patient discharged in stable condition to SNF at [facility] in [place], [place]. FOLLOW-UP APPOINTMENTS: -Patient will be followed by the [facility] physician while at [facility] -Patient should follow up with her primary care provider within one to 2 weeks. Consider follow-up MRI is recommended by radiology. RADIOLOGY REPORTS: Abdominal x-ray flat and upright on 06/21/2017 showed: Abnormal bowel gas pattern suggestive of colitis. No definite signs of intestinal obstruction. Vascular calcifications versus potential left-sided nephrolithiasis. Brain MRI with and without contrast on 06/25/2017 showed: 1. Previous right frontal/parietal parenchymal hemorrhage with craniotomy/ parenchymal surgery. There is abnormal signal in this region with enhancement of the cavity and the adjacent meninges. This is felt to be within normal limits for the sequelae of hemorrhage/ischemic/postsurgical changes. 2. Small focal area of encephalomalacia change with blood products in the sulci within the posterior right parietal lobe, and sister with evolution of a previous focus of ischemia/hemorrhage. 3. Small focal areas of increased signal within the left posterior right parietal/occipital lobe and posterior left temporal lobe on the diffusion- weighted images, this is most consistent with small focal areas of acute ischemia. Correlation follow-up MRI required. Right knee x-ray on 06/26/2017 showed: Small joint effusion and soft tissue swelling of the right knee. No acute fracture or dislocation. 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 Two-view PA and lateral chest x-ray on 06/28/2017 showed: Hyperinflation with stable appearing parenchymal scarring. Possible tiny effusions in the posterior costophrenic angles with small amounts of linear atelectasis. Procedures Performed: none Results and Findings: Laboratory Tests 06/26/17 06/26/17 06/27/17 16:28 16:28 10:02 WBC 11.6 H 14.9 H D Hgb 10.5 L 11.3 L Hct 31.3 L 34.4 L MCV 86.9 88.2 Plt Count 468 H 536 H Sodium Plasma Sodium Potassium Chloride Carbon Dioxide Anion Gap BUN Creatinine Est GFR (Non-Af Amer) BUN/Creatinine Ratio Random Glucose Uric Acid 6.5 Calcium Iron TIBC Transferrin % Sat Total Bilirubin AST ALT Alkaline Phosphatase C-Reactive Prot, Quant 8.3 H Total Protein Albumin Vitamin B12 Folate 06/27/17 06/28/17 06/28/17 10:02 05:20 05:20 WBC 8.9 D Hgb 9.8 L Hct 30.1 L MCV 88.8 Plt Count 464 H Sodium Plasma Sodium Potassium Chloride Carbon Dioxide Anion Gap BUN Creatinine Est GFR (Non-Af Amer) BUN/Creatinine Ratio Random Glucose Uric Acid Calcium Iron TIBC Transferrin % Sat Total Bilirubin 0.3 0.2 AST 9 6 ALT 12 L 9 L Alkaline Phosphatase 64 C-Reactive Prot, Quant 7.8 H 6.1 H Total Protein 5.0 L 4.5 L Albumin 1.8 L 1.6 L Vitamin B12 Folate 06/29/17 06/29/17 06/29/17 08:15 08:15 08:15 WBC 12.3 H D Hgb 10.2 L Hct 31.2 L MCV 88.6 Plt Count 452 H Sodium Plasma Sodium Potassium Chloride Carbon Dioxide Anion Gap BUN Creatinine Est GFR (Non-Af Amer) BUN/Creatinine Ratio Random Glucose Uric Acid Calcium Iron 24 L TIBC 158 L Transferrin % Sat 15 Total Bilirubin AST ALT Alkaline Phosphatase C-Reactive Prot, Quant Total Protein Albumin Vitamin B12 1023 H Folate 5.4 06/30/17 06/30/17 05:55 05:55 WBC 9.8 D Hgb 9.4 L Hct 29.0 L MCV 89.8 Plt Count 446 Sodium 140 Plasma Sodium 140 Potassium 4.3 Chloride 108 H Carbon Dioxide 23.3 L Anion Gap 13.0 BUN 26 H Creatinine 1.14 Est GFR (Non-Af Amer) 49 L BUN/Creatinine Ratio 22.8 H Random Glucose 93 Uric Acid Calcium 8.0 Iron TIBC Transferrin % Sat Total Bilirubin AST ALT Alkaline Phosphatase C-Reactive Prot, Quant Total Protein Albumin Vitamin B12 Folate Discharge Disposition: Other HealthCare facility Disposition: Other health care facility Condition: Stable Discharge Activity: Activity as tolerated Discharge Diet: Other - Mechanical soft, gluten free [facility]ci Therapy: Physicial Therapy, Occupation Therapy, Speech Therapy Referrals: Alejandra Harmon MD [Primary Care Provider] - Additional Patient Instructions (free text): Dr Esposito to follow at [facility]. Flagyl and Cipro X 2 days. Prescriptions (Any new or edited meds): Ferrous Sulfate 325 mg PO BIDWM #60 tablet Sennosides/Docusate Sodium [Senna-S Tablet] 1 each PO BID #60 tablet Complete Home Medications List: Complete Home Medication List: Alprazolam [Xanax Xr] 1 mg PO DAILY 03/30/14 Omeprazole [Prilosec] 20 mg PO DAILY 03/30/14 Aclidinium [place] [Tudorza Pressair] 400 mcg IH BID 07/14/16 Albuterol Sulfate [Proair Hfa] 1 - 2 puff IH Q4H PRN 07/14/16 Budesonide/Formoterol Fumarate [Symbicort 160-4.5 Mcg Inhaler] 2 puff IH BID FLUoxetine HCL [Prozac] 20 mg PO DAILY 02/09/17 Propafenone HCl [Propafenone HCl ER] 225 mg PO BID 02/09/17 Fluticasone Propionate [Flovent Diskus] 50 mcg IH DAILY 06/16/17 Triamterene/Hydrochlorothiazid [Dyazide 37.5/25] 1 cap PO DAILY 06/16/17 Levothyroxine Sodium [Synthroid] 150 mcg PO DAILY #30 tab 06/17/17 Aspirin [Aspirin Enteric Coated] 81 mg PO DAILY tablet. 06/30/17 Benzocaine/Menthol [Cepacol Sore Throat] 1 each MM PRN PRN #0 box 06/30/17 Ciprofloxacin HCl [Cipro] 500 mg PO BID #4 tablet 06/30/17 Diltiazem HCl [Cardizem Cd] 180 mg PO Q24H #0 cap.sr.24h 06/30/17 Ferrous Sulfate 325 mg PO BIDWM #60 tablet 06/30/17 Indomethacin [Indocin] 50 mg PO TIDWM 5 Days capsule 06/30/17 Rosuvastatin Calcium [Crestor] 20 mg PO HS tablet 06/30/17 Sennosides/Docusate Sodium [Senna-S Tablet] 1 each PO BID #60 tablet 06/30/17 metroNIDAZOLE [Flagyl] 500 mg PO TID #6 tablet 06/30/17
== END 2017-06-30 13:15 | disposition short-term general hospital (02) | DRG 65 ==
LOC: ER 17:44 → MS 21:51 → UNDOADMOB 21:51 → OBSVTOIN 21:51 → INTOOBSV 21:51 → MS 21:58 → INTOOBSV 22:10 → OBSVTOIN 22:10 → MS 22:10 → SCU 06-23 05:33 → OBSVTOIN 06-23 05:35 → MS 06-23 13:47 → SCU 06-23 13:51 → MS 06-24 06:23
PROVIDERS: ADMIT Nurse Practitioner Critical Care Medicine; ATTEND Family Medicine
PROC: 0T9B7ZZ Drainage of Bladder, Via Natural or Artificial Opening (ICD-10-PCS; principal; 2017-06-21)
DX: I63.9 Cerebral infarction, unspecified (principal); N30.00 Acute cystitis without hematuria; E86.0 Dehydration; I48.91 Unspecified atrial fibrillation; K52.9 Noninfective gastroenteritis and colitis, unspecified; K14.0 Glossitis; M25.561 Pain in right knee; J44.9 Chronic obstructive pulmonary disease, unspecified; I10 Essential (primary) hypertension; F41.8 Other specified anxiety disorders; Z86.73 Personal history of transient ischemic attack (TIA), and cerebral infarction without residual deficits
CPT/HCPCS: 36415; 51701; 70553; 71020; 73562; 74020; 80048; 80053; 81001; 82607; 82746; 83540; 83550; 83735; 84439; 84443; 84550; 85007; 85025; 85027; 85652; 86140; 87045; 87046; 87493; 92526; 92610; 93005; 94640; 96374; 96375; 97110; 97116; 97162; 97165; 99291; G0378; J2405